=== PATIENT | female | born 1965 | race African-American/Black ===

== ENCOUNTER 2017-05-01 08:32 | Emergency (ER) | payer BC, MEDICAID ==
[~2017-05-01] VITALS: Ht 172.7 cm; Wt 131.0 kg
[2017-05-01] MEDS ORDERED: LIDOCAINE HCL 1% 20ML VIAL (Pyxis) INJ MC ONE (12:45)
[2017-05-01] MEDS ORDERED: HYDROCODONE/ACETAMINOPHEN 5/325MG TABLET PO ONE (13:15)
[2017-05-01 14:51] VITALS: BP 151/85
== END 2017-05-01 14:59 | disposition home or self-care (01) ==
LOC: ER 09:15
DX: K61.0 Anal abscess (principal); L30.8 Other specified dermatitis; R21 Rash and other nonspecific skin eruption; I10 Essential (primary) hypertension; E11.9 Type 2 diabetes mellitus without complications; E66.9 Obesity, unspecified; Z68.41 Body mass index [BMI] 40.0-44.9, adult
CPT/HCPCS: 56405; 99283; J3490

== ENCOUNTER 2017-05-13 07:07 | Emergency (ER) | payer BC ==
[~2017-05-13] VITALS: Ht 172.7 cm; Wt 90.0 kg
[2017-05-13 08:03] VITALS: BP 180/90
== END 2017-05-13 10:44 | disposition home or self-care (01) ==
LOC: ER 08:59
DX: Z48.817 Encounter for surgical aftercare following surgery on the skin and subcutaneous tissue (principal); B37.2 Candidiasis of skin and nail; L30.9 Dermatitis, unspecified; E11.9 Type 2 diabetes mellitus without complications; I10 Essential (primary) hypertension; Z88.8 Allergy status to other drugs, medicaments and biological substances
CPT/HCPCS: 99283

== ENCOUNTER 2021-10-19 13:38 | Inpatient (IN) | payer BC, OTHER ==
[~2021-10-19] VITALS: Ht 172.7 cm; Wt 88.0 kg
[2021-10-19] MEDS ORDERED: IOHEXOL-350 100 ML BOTTLE ONE (14:17)
[2021-10-19] MEDS ORDERED: ONDANSETRON HCL 4MG/2ML INJ IV ONE (14:30)
[2021-10-19] MEDS ORDERED: LABETALOL HCL VIAL 20 MG/4 ML VIAL IV ONE (14:45)
[2021-10-19] MEDS ORDERED: LABETALOL 5MG/ML SYR 20 MG/4 ML SYRINGE IV NR (14:45)
[2021-10-19 14:51] LABS: BASOPHILS % 1.3 % (0.0-2.0); EOSINOPHILS % 1.6 % (0.0-5.0); HEMATOCRIT. 34.7 % (36.0-48.0); HEMOGLOBIN. 10.9 g/dL (12.0-16.0); LYMPHOCYTES % 35.5 % (20.0-50.0); MEAN CORPUSCULAR HEMOGLOBIN 26.9 pg (28.0-32.0); MEAN CORPUSCULAR VOLUME 85.1 fL (81.0-99.0); MONOCYTES % 6.2 % (2.0-8.0); NEUTROPHILS % 55.4 % (40.0-76.0); RED BLOOD CELL COUNT 4.07 mill/uL (4.2-5.4); RED CELL DISTRIBUTION WIDTH 14.8 % (11.6-14.6)
[2021-10-19 14:59] LABS: PROTHROMBIN TIME 10.3 sec (9.6-11.0)
[2021-10-19 15:02] LABS: CHLORIDE 110 mEq/L (98-107)
[2021-10-19 15:13] LABS: ETHANOL BLOOD < 10 mg/dL
[2021-10-19] MEDS ORDERED: ASPIRIN 325MG EC TABLET PO ONE (15:30)
[2021-10-19] MEDS: ENOXAPARIN 150MG/ML SYR SUBCUT SCH (16:28)
[2021-10-19 16:55] LABS: MEAN PLATELET VOLUME 10.1 fl (7.4-10.4); PLATELET 327 x1000/uL (130-400)
[2021-10-19] MEDS ORDERED: CLONIDINE 0.1MG TABLET PO PRN (18:00)
[2021-10-19] MEDS ORDERED: MAGNESIUM/ALUMINUM HYDROXIDE/SIMETHICONE 30ML UDC PO PRN (18:00)
[2021-10-19] MEDS ORDERED: MORPHINE SULFATE 2 MG/ML CPJ (NOT FOR IM USE) IV PRN (18:00)
[2021-10-19] MEDS ORDERED: GUAIFENESIN 200MG/10ML SUGAR FREE UDC PO PRN (18:00)
[2021-10-19] MEDS ORDERED: ACETAMINOPHEN 325MG TABLET PO PRN (18:00)
[2021-10-19] MEDS ORDERED: IPRATROPIUM/ALBUTEROL 0.5-3(2.5)MG/3ML NEB HHN PRN (18:00)
[2021-10-19] MEDS ORDERED: DIPHENHYDRAMINE 50MG/ML VIAL IV PRN (18:00)
[2021-10-19] MEDS ORDERED: LORAZEPAM 2MG/ML CPJ IV PRN (18:00)
[2021-10-19] MEDS ORDERED: DEXTROSE 50% WATER 50ML SYRINGE IV PRN (18:00)
[2021-10-19] MEDS ORDERED: HYDROCODONE/ACETAMINOPHEN 5/325MG TABLET PO PRN (18:00)
[2021-10-19] MEDS ORDERED: HYDRALAZINE 20MG/ML VIAL IV PRN (18:00)
[2021-10-19] MEDS ORDERED: ONDANSETRON HCL 4MG/2ML INJ IV PRN (18:00)
[2021-10-19] MEDS ORDERED: NALOXONE HCL 0.4MG/ML VIAL IV PRN (18:15)
[2021-10-19 18:37] VITALS: BP 170/69
[2021-10-19 19:37] VITALS: BP 165/77
[2021-10-19 20:16] VITALS: BP 165/95
[2021-10-19] MEDS: SODIUM CHLORIDE 0.9% INJ 3ML FLUSH IVF SCH (21:00)
[2021-10-19] MEDS: INSULIN LISPRO 100 UNITS/ML SUBCUT SCH (21:00)
[2021-10-19] MEDS: BLOOD SUGAR DIAGNOSTIC STRIP TEST SCH (21:00)
[2021-10-19 22:07] VITALS: BP 182/77
[2021-10-20] VITALS (16 sets, daily range): BP systolic 119–181; BP diastolic 67–105
[2021-10-20] MEDS: ENOXAPARIN 150MG/ML SYR SUBCUT SCH ×2 (04:21→16:59)
[2021-10-20] MEDS: SODIUM CHLORIDE 0.9% INJ 3ML FLUSH IVF SCH ×3 (06:10→22:36)
[2021-10-20 06:16] LABS: BASOPHILS % 0.4 % (0.0-2.0); EOSINOPHILS % 1.5 % (0.0-5.0); HEMATOCRIT. 31.2 % (36.0-48.0); HEMOGLOBIN. 10.3 g/dL (12.0-16.0); LYMPHOCYTES % 27.9 % (20.0-50.0); MEAN CORPUSCULAR HEMOGLOBIN 27.5 pg (28.0-32.0); MEAN CORPUSCULAR VOLUME 83.5 fL (81.0-99.0); MONOCYTES % 7.4 % (2.0-8.0); NEUTROPHILS % 62.8 % (40.0-76.0); PLATELET 309 x1000/uL (130-400); RED BLOOD CELL COUNT 3.74 mill/uL (4.2-5.4); RED CELL DISTRIBUTION WIDTH 14.8 % (11.6-14.6)
[2021-10-20 06:36] LABS: CHLORIDE 112 mEq/L (98-107); HDL CHOLESTEROL 33 mg/dL (40-59); LDL CHOLESTEROL 117 mg/dL (5-100)
[2021-10-20] MEDS: BLOOD SUGAR DIAGNOSTIC STRIP TEST SCH ×4 (07:18→22:12)
[2021-10-20] MEDS: INSULIN LISPRO 100 UNITS/ML SUBCUT SCH ×4 (08:00→22:25)
[2021-10-20] MEDS: AMLODIPINE 10MG TABLET PO SCH (08:35)
[2021-10-20] MEDS: CARVEDILOL 6.25 MG TABLET PO SCH ×2 (08:35→22:23)
[2021-10-20 11:11] LABS: CREATINE KINASE 150 IU/L (26-192)
[2021-10-20] MEDS: SODIUM CHLORIDE 0.45% 1,000 ML IV SCH (12:02)
[2021-10-20 12:36] LABS: CLARITY URINE CLEAR (CLEAR); COLOR URINE YELLOW (YELLOW); KETONES URINE TRACE (NEGATIVE); LEUKOCYTE ESTERASE URINE NEGATIVE (NEGATIVE); NITRITE URINE NEGATIVE (NEGATIVE); OCCULT BLOOD URINE 1+ (NEGATIVE); PROTEIN URINE 4+ (NEGATIVE); SPECIFIC GRAVITY URINE 1.023 (1.005-1.030); UROBILINOGEN URINE 0.2 E.U./dL (0.2-1.0)
[2021-10-20] MEDS: ATORVASTATIN CALCIUM 40MG TABLET PO SCH (22:23)
[2021-10-21] VITALS (14 sets, daily range): BP systolic 122–179; BP diastolic 51–91
[2021-10-21] MEDS: SODIUM CHLORIDE 0.45% 1,000 ML IV SCH ×2 (02:47→20:20)
[2021-10-21] MEDS: ENOXAPARIN 150MG/ML SYR SUBCUT SCH (04:34)
[2021-10-21] MEDS: SODIUM CHLORIDE 0.9% INJ 3ML FLUSH IVF SCH ×3 (05:49→22:37)
[2021-10-21 06:13] LABS: BASOPHILS % 0.6 % (0.0-2.0); EOSINOPHILS % 2.6 % (0.0-5.0); HEMATOCRIT. 30.8 % (36.0-48.0); LYMPHOCYTES % 37.1 % (20.0-50.0); MEAN CORPUSCULAR HEMOGLOBIN 27.4 pg (28.0-32.0); MEAN CORPUSCULAR VOLUME 84.8 fL (81.0-99.0); MEAN PLATELET VOLUME 9.9 fl (7.4-10.4); MONOCYTES % 9.4 % (2.0-8.0); NEUTROPHILS % 50.3 % (40.0-76.0); PLATELET 300 x1000/uL (130-400); RED BLOOD CELL COUNT 3.63 mill/uL (4.2-5.4); RED CELL DISTRIBUTION WIDTH 14.6 % (11.6-14.6)
[2021-10-21 06:29] LABS: PHOSPHORUS 5.2 mg/dL (2.5-4.9)
[2021-10-21] MEDS: BLOOD SUGAR DIAGNOSTIC STRIP TEST SCH ×4 (07:30→21:28)
[2021-10-21 08:10] LABS: ANTI-NUCLEAR ANTIBODIES DIRECT Negative (Negative)
[2021-10-21] MEDS: AMLODIPINE 10MG TABLET PO SCH (08:43)
[2021-10-21] MEDS: CARVEDILOL 6.25 MG TABLET PO SCH ×2 (08:43→20:20)
[2021-10-21] MEDS: INSULIN LISPRO 100 UNITS/ML SUBCUT SCH ×4 (08:45→21:28)
[2021-10-21] MEDS: CLOPIDOGREL 75MG TABLET PO SCH (12:36)
[2021-10-21] MEDS: ASPIRIN 325MG EC TABLET PO SCH (12:37)
[2021-10-21] MEDS: ATORVASTATIN CALCIUM 40MG TABLET PO SCH (20:20)
[2021-10-22] VITALS (10 sets, daily range): BP systolic 124–152; BP diastolic 45–121
[2021-10-22] MEDS: DOCUSATE SODIUM 100MG CAPSULE PO PRN (03:44)
[2021-10-22] MEDS: SODIUM CHLORIDE 0.9% INJ 3ML FLUSH IVF SCH ×3 (05:43→22:00)
[2021-10-22] MEDS ORDERED: ENOXAPARIN 150MG/ML SYR SUBCUT SCH (06:00)
[2021-10-22 06:18] LABS: BASOPHILS % 0.6 % (0.0-2.0); EOSINOPHILS % 2.6 % (0.0-5.0); HEMATOCRIT. 29.5 % (36.0-48.0); HEMOGLOBIN. 9.6 g/dL (12.0-16.0); MEAN CORPUSCULAR HEMOGLOBIN 27.4 pg (28.0-32.0); MEAN CORPUSCULAR VOLUME 83.7 fL (81.0-99.0); MEAN PLATELET VOLUME 10.1 fl (7.4-10.4); MONOCYTES % 8.9 % (2.0-8.0); NEUTROPHILS % 57.9 % (40.0-76.0); PLATELET 284 x1000/uL (130-400); RED BLOOD CELL COUNT 3.52 mill/uL (4.2-5.4); RED CELL DISTRIBUTION WIDTH 14.6 % (11.6-14.6)
[2021-10-22] MEDS: BLOOD SUGAR DIAGNOSTIC STRIP TEST SCH ×4 (06:32→21:07)
[2021-10-22] MEDS: CLOPIDOGREL 75MG TABLET PO SCH (09:03)
[2021-10-22] MEDS: AMLODIPINE 10MG TABLET PO SCH (09:04)
[2021-10-22] MEDS: ASPIRIN 325MG EC TABLET PO SCH (09:04)
[2021-10-22] MEDS: CARVEDILOL 6.25 MG TABLET PO SCH ×2 (09:04→21:07)
[2021-10-22] MEDS: INSULIN LISPRO 100 UNITS/ML SUBCUT SCH ×4 (09:04→21:14)
[2021-10-22] MEDS: HYDRALAZINE HCL 25MG TABLET PO SCH ×2 (13:13→23:06)
[2021-10-22] MEDS: SODIUM CHLORIDE 0.45% 1,000 ML IV SCH (13:13)
[2021-10-22] MEDS: ATORVASTATIN CALCIUM 40MG TABLET PO SCH (21:07)
[2021-10-23] VITALS (12 sets, daily range): BP systolic 110–164; BP diastolic 46–95
[2021-10-23] MEDS: DOCUSATE SODIUM 100MG CAPSULE PO PRN (00:08)
[2021-10-23] MEDS: HYDRALAZINE HCL 25MG TABLET PO SCH ×3 (05:41→22:10)
[2021-10-23] MEDS: ENOXAPARIN 150MG/ML SYR SUBCUT SCH (05:41)
[2021-10-23] MEDS: SODIUM CHLORIDE 0.9% INJ 3ML FLUSH IVF SCH ×3 (06:00→22:11)
[2021-10-23] MEDS: SODIUM CHLORIDE 0.45% 1,000 ML IV SCH ×2 (08:00→17:27)
[2021-10-23] MEDS: BLOOD SUGAR DIAGNOSTIC STRIP TEST SCH ×4 (08:28→21:00)
[2021-10-23] MEDS: ASPIRIN 325MG EC TABLET PO SCH (08:34)
[2021-10-23] MEDS: CARVEDILOL 6.25 MG TABLET PO SCH ×2 (08:34→22:10)
[2021-10-23] MEDS: AMLODIPINE 10MG TABLET PO SCH (08:34)
[2021-10-23] MEDS: CLOPIDOGREL 75MG TABLET PO SCH (08:34)
[2021-10-23] MEDS: INSULIN LISPRO 100 UNITS/ML SUBCUT SCH ×4 (08:37→22:24)
[2021-10-23] MEDS: ATORVASTATIN CALCIUM 40MG TABLET PO SCH (22:10)
[2021-10-24] VITALS (12 sets, daily range): BP systolic 93–187; BP diastolic 39–99
[2021-10-24] MEDS: HYDRALAZINE 20MG/ML VIAL IV PRN (01:03)
[2021-10-24] MEDS: SODIUM CHLORIDE 0.45% 1,000 ML IV SCH (05:38)
[2021-10-24] MEDS: ENOXAPARIN 150MG/ML SYR SUBCUT SCH (05:38)
[2021-10-24] MEDS: HYDRALAZINE HCL 25MG TABLET PO SCH ×3 (05:39→21:32)
[2021-10-24] MEDS: SODIUM CHLORIDE 0.9% INJ 3ML FLUSH IVF SCH ×3 (05:48→21:29)
[2021-10-24] MEDS: BLOOD SUGAR DIAGNOSTIC STRIP TEST SCH ×4 (07:26→21:29)
[2021-10-24] MEDS: INSULIN LISPRO 100 UNITS/ML SUBCUT SCH ×4 (08:37→21:34)
[2021-10-24] MEDS: ASPIRIN 325MG EC TABLET PO SCH (09:19)
[2021-10-24] MEDS: AMLODIPINE 10MG TABLET PO SCH (09:19)
[2021-10-24] MEDS: DOCUSATE SODIUM 100MG CAPSULE PO PRN (09:19)
[2021-10-24] MEDS: CARVEDILOL 6.25 MG TABLET PO SCH ×2 (09:19→21:33)
[2021-10-24] MEDS: CLOPIDOGREL 75MG TABLET PO SCH (09:26)
[2021-10-24] MEDS ORDERED: LACTULOSE 20G/30ML UDC PO PRN (10:00)
[2021-10-24] MEDS ORDERED: BISACODYL 10MG SUPP PR SCH (10:45)
[2021-10-24] MEDS ORDERED: DOCUSATE SODIUM 100MG CAPSULE PO SCH (17:00)
[2021-10-24] MEDS: DOCUSATE SODIUM 100MG CAPSULE PO SCH (17:18)
[2021-10-24] MEDS: ATORVASTATIN CALCIUM 40MG TABLET PO SCH (21:31)
[2021-10-25] VITALS (11 sets, daily range): BP systolic 108–179; BP diastolic 44–91
[2021-10-25] MEDS: ENOXAPARIN 150MG/ML SYR SUBCUT SCH (06:45)
[2021-10-25] MEDS: BLOOD SUGAR DIAGNOSTIC STRIP TEST SCH ×4 (06:45→21:41)
[2021-10-25] MEDS: SODIUM CHLORIDE 0.9% INJ 3ML FLUSH IVF SCH ×3 (06:46→21:41)
[2021-10-25] MEDS: HYDRALAZINE HCL 25MG TABLET PO SCH ×3 (06:46→21:41)
[2021-10-25] MEDS: INSULIN LISPRO 100 UNITS/ML SUBCUT SCH ×4 (06:52→21:47)
[2021-10-25 07:32] LABS: BASOPHILS % 0.4 % (0.0-2.0); EOSINOPHILS % 2.5 % (0.0-5.0); HEMATOCRIT. 31.9 % (36.0-48.0); HEMOGLOBIN. 10.4 g/dL (12.0-16.0); MEAN CORPUSCULAR HEMOGLOBIN 27.2 pg (28.0-32.0); MEAN CORPUSCULAR VOLUME 83.3 fL (81.0-99.0); MEAN PLATELET VOLUME 10.3 fl (7.4-10.4); MONOCYTES % 10.7 % (2.0-8.0); NEUTROPHILS % 50.4 % (40.0-76.0); PLATELET 285 x1000/uL (130-400); RED BLOOD CELL COUNT 3.83 mill/uL (4.2-5.4); RED CELL DISTRIBUTION WIDTH 14.4 % (11.6-14.6)
[2021-10-25] MEDS: AMLODIPINE 10MG TABLET PO SCH (08:59)
[2021-10-25] MEDS: ASPIRIN 325MG EC TABLET PO SCH (08:59)
[2021-10-25] MEDS: CARVEDILOL 6.25 MG TABLET PO SCH ×2 (08:59→21:41)
[2021-10-25] MEDS: CLOPIDOGREL 75MG TABLET PO SCH (08:59)
[2021-10-25] MEDS: DOCUSATE SODIUM 100MG CAPSULE PO SCH ×2 (09:00→17:34)
[2021-10-25] MEDS: CITRIC ACID/SODIUM CITRATE SOLN 15ML UDC PO SCH ×3 (10:42→17:34)
[2021-10-25] MEDS: ATORVASTATIN CALCIUM 40MG TABLET PO SCH (21:41)
[2021-10-26] VITALS (12 sets, daily range): BP systolic 84–161; BP diastolic 47–106
[2021-10-26] MEDS: ENOXAPARIN 150MG/ML SYR SUBCUT SCH ×2 (06:04→17:33)
[2021-10-26] MEDS: HYDRALAZINE HCL 25MG TABLET PO SCH ×3 (06:05→21:34)
[2021-10-26] MEDS: SODIUM CHLORIDE 0.9% INJ 3ML FLUSH IVF SCH ×3 (06:05→21:34)
[2021-10-26 06:24] LABS: BASOPHILS % 0.6 % (0.0-2.0); EOSINOPHILS % 3.3 % (0.0-5.0); HEMOGLOBIN. 10.1 g/dL (12.0-16.0); LYMPHOCYTES % 39.4 % (20.0-50.0); MEAN CORPUSCULAR HEMOGLOBIN 27.5 pg (28.0-32.0); MEAN CORPUSCULAR VOLUME 84.1 fL (81.0-99.0); MEAN PLATELET VOLUME 10.5 fl (7.4-10.4); NEUTROPHILS % 46.7 % (40.0-76.0); PLATELET 270 x1000/uL (130-400); RED BLOOD CELL COUNT 3.68 mill/uL (4.2-5.4); RED CELL DISTRIBUTION WIDTH 14.4 % (11.6-14.6)
[2021-10-26] MEDS: BLOOD SUGAR DIAGNOSTIC STRIP TEST SCH ×4 (06:30→21:34)
[2021-10-26] MEDS: INSULIN LISPRO 100 UNITS/ML SUBCUT SCH ×4 (08:00→21:35)
[2021-10-26] MEDS: ASPIRIN 325MG EC TABLET PO SCH (09:24)
[2021-10-26] MEDS: CLOPIDOGREL 75MG TABLET PO SCH (09:24)
[2021-10-26] MEDS: DOCUSATE SODIUM 100MG CAPSULE PO SCH ×2 (09:24→17:30)
[2021-10-26] MEDS: CARVEDILOL 6.25 MG TABLET PO SCH ×2 (09:24→21:33)
[2021-10-26] MEDS: AMLODIPINE 10MG TABLET PO SCH (09:30)
[2021-10-26] MEDS: CITRIC ACID/SODIUM CITRATE SOLN 15ML UDC PO SCH ×3 (09:30→17:33)
[2021-10-26] MEDS: ATORVASTATIN CALCIUM 40MG TABLET PO SCH (21:33)
[2021-10-27] VITALS (14 sets, daily range): BP systolic 100–172; BP diastolic 52–101
[2021-10-27 06:13] LABS: BASOPHILS % 0.4 % (0.0-2.0); EOSINOPHILS % 2.8 % (0.0-5.0); HEMOGLOBIN. 10.6 g/dL (12.0-16.0); LYMPHOCYTES % 41.9 % (20.0-50.0); MEAN CORPUSCULAR VOLUME 83.9 fL (81.0-99.0); MEAN PLATELET VOLUME 10.6 fl (7.4-10.4); MONOCYTES % 9.8 % (2.0-8.0); NEUTROPHILS % 45.1 % (40.0-76.0); PLATELET 305 x1000/uL (130-400); RED BLOOD CELL COUNT 3.93 mill/uL (4.2-5.4); RED CELL DISTRIBUTION WIDTH 14.5 % (11.6-14.6)
[2021-10-27 06:23] LABS: PHOSPHORUS 4.1 mg/dL (2.5-4.9)
[2021-10-27] MEDS: SODIUM CHLORIDE 0.9% INJ 3ML FLUSH IVF SCH ×3 (06:26→22:00)
[2021-10-27] MEDS: HYDRALAZINE HCL 25MG TABLET PO SCH ×3 (06:35→21:22)
[2021-10-27] MEDS: ENOXAPARIN 150MG/ML SYR SUBCUT SCH ×2 (06:36→17:52)
[2021-10-27] MEDS: BLOOD SUGAR DIAGNOSTIC STRIP TEST SCH ×4 (06:36→21:22)
[2021-10-27] MEDS: CITRIC ACID/SODIUM CITRATE SOLN 15ML UDC PO SCH ×3 (08:46→17:52)
[2021-10-27] MEDS: CLOPIDOGREL 75MG TABLET PO SCH (08:46)
[2021-10-27] MEDS: ASPIRIN 325MG EC TABLET PO SCH (08:46)
[2021-10-27] MEDS: AMLODIPINE 10MG TABLET PO SCH (08:47)
[2021-10-27] MEDS: CARVEDILOL 6.25 MG TABLET PO SCH ×2 (08:47→21:22)
[2021-10-27] MEDS: DOCUSATE SODIUM 100MG CAPSULE PO SCH ×2 (08:48→17:00)
[2021-10-27] MEDS: INSULIN LISPRO 100 UNITS/ML SUBCUT SCH ×4 (08:48→21:33)
[2021-10-27] MEDS ORDERED: BISACODYL 10MG SUPP PR PRN (14:00)
[2021-10-27] MEDS: LACTULOSE 20G/30ML UDC PO SCH ×3 (14:46→21:00)
[2021-10-27] MEDS ORDERED: POLYETHYLENE GLYCOL 3350 (17GM) 1 DOSE PACK PO SCH (21:00)
[2021-10-27] MEDS: ATORVASTATIN CALCIUM 40MG TABLET PO SCH (21:20)
[2021-10-27] MEDS: HYDRALAZINE 20MG/ML VIAL IV PRN (23:42)
[2021-10-28] VITALS (10 sets, daily range): BP systolic 145–188; BP diastolic 60–97
[2021-10-28] MEDS: ENOXAPARIN 150MG/ML SYR SUBCUT SCH ×2 (06:13→17:25)
[2021-10-28] MEDS: SODIUM CHLORIDE 0.9% INJ 3ML FLUSH IVF SCH ×2 (06:15→14:34)
[2021-10-28] MEDS: HYDRALAZINE HCL 25MG TABLET PO SCH ×2 (06:15→14:37)
[2021-10-28] MEDS: BLOOD SUGAR DIAGNOSTIC STRIP TEST SCH ×3 (07:30→17:36)
[2021-10-28] MEDS: INSULIN LISPRO 100 UNITS/ML SUBCUT SCH ×3 (08:00→17:35)
[2021-10-28] MEDS: LACTULOSE 20G/30ML UDC PO SCH ×3 (09:29→17:00)
[2021-10-28] MEDS: CITRIC ACID/SODIUM CITRATE SOLN 15ML UDC PO SCH ×3 (09:29→17:24)
[2021-10-28] MEDS: ASPIRIN 325MG EC TABLET PO SCH (09:30)
[2021-10-28] MEDS: CARVEDILOL 6.25 MG TABLET PO SCH (09:30)
[2021-10-28] MEDS: CLOPIDOGREL 75MG TABLET PO SCH (09:30)
[2021-10-28] MEDS: AMLODIPINE 10MG TABLET PO SCH (09:31)
[2021-10-28] MEDS: DOCUSATE SODIUM 100MG CAPSULE PO SCH ×2 (09:31→17:24)
== END 2021-10-28 20:00 | DRG 64 ==
LOC: ER 13:38 → 5EST 16:55 → EDBEDREQ 16:57 → EDBEDREQTM 16:57 → ENRESERV 17:01
PROVIDERS: ADMIT Internal Medicine; ATTEND Internal Medicine
DX: I63.9 Cerebral infarction, unspecified (principal); N17.0 Acute kidney failure with tubular necrosis; I21.4 Non-ST elevation (NSTEMI) myocardial infarction; I50.43 Acute on chronic combined systolic (congestive) and diastolic (congestive) heart failure; I16.1 Hypertensive emergency; E87.2 Acidosis; R65.10 Systemic inflammatory response syndrome (SIRS) of non-infectious origin without acute organ dysfunction; G81.91 Hemiplegia, unspecified affecting right dominant side; I42.9 Cardiomyopathy, unspecified; I13.0 Hypertensive heart and chronic kidney disease with heart failure and stage 1 through stage 4 chronic kidney disease, or unspecified chronic kidney disease; D64.9 Anemia, unspecified; N18.9 Chronic kidney disease, unspecified; E11.22 Type 2 diabetes mellitus with diabetic chronic kidney disease; I66.11 Occlusion and stenosis of right anterior cerebral artery; R47.1 Dysarthria and anarthria; E66.01 Morbid (severe) obesity due to excess calories; K76.0 Fatty (change of) liver, not elsewhere classified; R47.01 Aphasia; I67.2 Cerebral atherosclerosis; E11.65 Type 2 diabetes mellitus with hyperglycemia; E88.09 Other disorders of plasma-protein metabolism, not elsewhere classified; K59.00 Constipation, unspecified; Z88.1 Allergy status to other antibiotic agents; Z79.899 Other long term (current) drug therapy; Z68.29 Body mass index [BMI] 29.0-29.9, adult; Z86.73 Personal history of transient ischemic attack (TIA), and cerebral infarction without residual deficits; Z91.81 History of falling
CPT/HCPCS: 36415; 70496; 70498; 71045; 76770; 80048; 80053; 80061; 80320; 81003; 82550; 82570; 82962; 83735; 83880; 84100; 84156; 84484; 85025; 86038; 86160; 86850; 86900; 92523; 92610; 93005; 93306; 93880; 93970; 97110; 97112; 97163; 97166; 97530; 97535; 99285; J0360; J1650; J1815; J2405; J3490; Q9967; G0480

== ENCOUNTER 2021-10-28 20:00 | Inpatient (IN) | payer OTHER ==
[~2021-10-28] VITALS: Ht 172.7 cm; Wt 139.2 kg
[2021-10-28 20:16] VITALS: BP 165/95
[2021-10-28 22:00] VITALS: BP 152/46
[2021-10-28] MEDS ORDERED: GUAIFENESIN 200MG/10ML SUGAR FREE UDC PO PRN (22:30)
[2021-10-28] MEDS ORDERED: HYDRALAZINE 20MG/ML VIAL IV PRN (22:30)
[2021-10-28] MEDS ORDERED: MAGNESIUM/ALUMINUM HYDROXIDE/SIMETHICONE 30ML UDC PO PRN (22:30)
[2021-10-28] MEDS ORDERED: ONDANSETRON HCL 4MG/2ML INJ IV PRN (22:30)
[2021-10-28] MEDS ORDERED: DEXTROSE 50% WATER 50ML SYRINGE IV PRN (22:30)
[2021-10-28] MEDS ORDERED: DIPHENHYDRAMINE 50MG/ML VIAL IV PRN (22:30)
[2021-10-28] MEDS ORDERED: IPRATROPIUM/ALBUTEROL 0.5-3(2.5)MG/3ML NEB HHN PRN ×2 (22:30→23:00)
[2021-10-28] MEDS ORDERED: BISACODYL 10MG SUPP PR PRN (22:30)
[2021-10-28] MEDS ORDERED: POLYETHYLENE GLYCOL 3350 (17GM) 1 DOSE PACK PO SCH (22:45)
[2021-10-28] MEDS: SODIUM CHLORIDE 0.9% INJ 3ML FLUSH IVF SCH (22:45)
[2021-10-28] MEDS: BLOOD SUGAR DIAGNOSTIC STRIP TEST SCH (22:45)
[2021-10-28] MEDS ORDERED: HYDRALAZINE 10 MG in SODIUM CHLORIDE 0.9% 49.5 ML IV PRN (23:00)
[2021-10-28] MEDS: INSULIN LISPRO 100 UNITS/ML SUBCUT SCH (23:59)
[2021-10-29 06:23] LABS: BASOPHILS % 0.5 % (0.0-2.0); EOSINOPHILS % 1.8 % (0.0-5.0); HEMATOCRIT. 32.4 % (36.0-48.0); HEMOGLOBIN. 10.6 g/dL (12.0-16.0); LYMPHOCYTES % 28.7 % (20.0-50.0); MEAN CORPUSCULAR HEMOGLOBIN 27.2 pg (28.0-32.0); MEAN CORPUSCULAR VOLUME 83.2 fL (81.0-99.0); MEAN PLATELET VOLUME 10.5 fl (7.4-10.4); MONOCYTES % 7.9 % (2.0-8.0); NEUTROPHILS % 61.1 % (40.0-76.0); PLATELET 317 x1000/uL (130-400); RED BLOOD CELL COUNT 3.89 mill/uL (4.2-5.4); RED CELL DISTRIBUTION WIDTH 14.7 % (11.6-14.6)
[2021-10-29] MEDS: HYDRALAZINE HCL 25MG TABLET PO SCH ×3 (06:39→23:23)
[2021-10-29 07:28] LABS: CHLORIDE 107 mEq/L (98-107)
[2021-10-29] MEDS: CITRIC ACID/SODIUM CITRATE SOLN 15ML UDC PO SCH ×3 (08:43→17:00)
[2021-10-29] MEDS: ASPIRIN 325MG EC TABLET PO SCH (08:44)
[2021-10-29] MEDS: AMLODIPINE 10MG TABLET PO SCH (08:48)
[2021-10-29] MEDS: CARVEDILOL 6.25 MG TABLET PO SCH ×2 (08:52→21:41)
[2021-10-29] MEDS: SODIUM CHLORIDE 0.9% INJ 3ML FLUSH IVF SCH ×3 (08:53→23:21)
[2021-10-29] MEDS: DOCUSATE SODIUM 100MG CAPSULE PO SCH ×2 (09:00→17:00)
[2021-10-29] MEDS: LACTULOSE 20G/30ML UDC PO SCH ×4 (09:00→21:00)
[2021-10-29] MEDS: INSULIN LISPRO 100 UNITS/ML SUBCUT SCH ×4 (09:04→21:54)
[2021-10-29] MEDS: ENOXAPARIN 150MG/ML SYR SUBCUT SCH ×2 (10:26→21:43)
[2021-10-29] MEDS: CLOPIDOGREL 75MG TABLET PO SCH (10:27)
[2021-10-29 12:00] VITALS: BP 155/42
[2021-10-29] MEDS: BLOOD SUGAR DIAGNOSTIC STRIP TEST SCH ×3 (12:04→21:43)
[2021-10-29 18:42] VITALS: BP 148/57
[2021-10-29 20:00] VITALS: BP 155/54
[2021-10-29] MEDS: POLYETHYLENE GLYCOL 3350 (17GM) 1 DOSE PACK PO SCH (21:00)
[2021-10-29] MEDS: ATORVASTATIN CALCIUM 40MG TABLET PO SCH (21:41)
[2021-10-30] VITALS: BP 170/80
[2021-10-30 04:00] VITALS: BP 172/60
[2021-10-30] MEDS: HYDRALAZINE HCL 25MG TABLET PO SCH ×3 (06:00→21:04)
[2021-10-30] MEDS: BLOOD SUGAR DIAGNOSTIC STRIP TEST SCH ×4 (06:26→21:10)
[2021-10-30] MEDS: SODIUM CHLORIDE 0.9% INJ 3ML FLUSH IVF SCH ×3 (06:26→22:29)
[2021-10-30] MEDS: INSULIN LISPRO 100 UNITS/ML SUBCUT SCH ×4 (07:11→21:27)
[2021-10-30 07:37] LABS: BASOPHILS % 0.3 % (0.0-2.0); EOSINOPHILS % 2.6 % (0.0-5.0); HEMATOCRIT. 30.6 % (36.0-48.0); HEMOGLOBIN. 9.9 g/dL (12.0-16.0); LYMPHOCYTES % 37.8 % (20.0-50.0); MEAN CORPUSCULAR VOLUME 83.6 fL (81.0-99.0); MEAN PLATELET VOLUME 10.1 fl (7.4-10.4); MONOCYTES % 8.6 % (2.0-8.0); NEUTROPHILS % 50.7 % (40.0-76.0); PLATELET 307 x1000/uL (130-400); RED BLOOD CELL COUNT 3.66 mill/uL (4.2-5.4); RED CELL DISTRIBUTION WIDTH 14.5 % (11.6-14.6)
[2021-10-30 08:00] VITALS: BP 156/62
[2021-10-30 08:12] LABS: CHLORIDE 105 mEq/L (98-107); TOTAL IRON BINDING CAPACITY 251 ug/dL (250-450)
[2021-10-30 08:25] LABS: FOLIC ACID (FOLATE) SERUM 8.7 ng/mL (>5.38)
[2021-10-30] MEDS: CLOPIDOGREL 75MG TABLET PO SCH (09:32)
[2021-10-30] MEDS: DOCUSATE SODIUM 100MG CAPSULE PO SCH ×2 (09:32→16:47)
[2021-10-30] MEDS: ENOXAPARIN 150MG/ML SYR SUBCUT SCH ×2 (09:32→21:06)
[2021-10-30] MEDS: AMLODIPINE 10MG TABLET PO SCH (09:33)
[2021-10-30] MEDS: ASPIRIN 325MG EC TABLET PO SCH (09:33)
[2021-10-30] MEDS: CITRIC ACID/SODIUM CITRATE SOLN 15ML UDC PO SCH ×3 (09:33→16:47)
[2021-10-30] MEDS: CARVEDILOL 6.25 MG TABLET PO SCH ×2 (09:33→21:06)
[2021-10-30] MEDS: ACETAMINOPHEN 325MG TABLET PO PRN (09:34)
[2021-10-30 12:00] VITALS: BP 139/34
[2021-10-30 16:00] VITALS: BP 139/34
[2021-10-30] MEDS: CYANOCOBALAMIN 1000MCG/ML VIAL IM SCH (16:47)
[2021-10-30] MEDS: FERROUS SULFATE 325MG TABLET PO SCH (16:48)
[2021-10-30] MEDS: LIDOCAINE 5% PATCH TOP SCH (18:03)
[2021-10-30 20:00] VITALS: BP 172/51
[2021-10-30] MEDS: POLYETHYLENE GLYCOL 3350 (17GM) 1 DOSE PACK PO SCH (21:00)
[2021-10-30] MEDS: ATORVASTATIN CALCIUM 40MG TABLET PO SCH (21:04)
[2021-10-31] VITALS: BP 155/54
[2021-10-31 04:00] VITALS: BP 160/52
[2021-10-31] MEDS: HYDRALAZINE HCL 25MG TABLET PO SCH ×3 (06:01→22:09)
[2021-10-31] MEDS: SODIUM CHLORIDE 0.9% INJ 3ML FLUSH IVF SCH ×3 (06:02→23:23)
[2021-10-31] MEDS: BLOOD SUGAR DIAGNOSTIC STRIP TEST SCH ×4 (06:58→21:29)
[2021-10-31] MEDS: INSULIN LISPRO 100 UNITS/ML SUBCUT SCH ×4 (06:58→21:28)
[2021-10-31 07:45] LABS: BASOPHILS % 0.4 % (0.0-2.0); EOSINOPHILS % 2.2 % (0.0-5.0); HEMATOCRIT. 28.9 % (36.0-48.0); HEMOGLOBIN. 9.6 g/dL (12.0-16.0); LYMPHOCYTES % 38.2 % (20.0-50.0); MEAN CORPUSCULAR HEMOGLOBIN 27.6 pg (28.0-32.0); MEAN CORPUSCULAR VOLUME 83.3 fL (81.0-99.0); MEAN PLATELET VOLUME 10.6 fl (7.4-10.4); MONOCYTES % 7.8 % (2.0-8.0); NEUTROPHILS % 51.4 % (40.0-76.0); PLATELET 293 x1000/uL (130-400); RED BLOOD CELL COUNT 3.47 mill/uL (4.2-5.4); RED CELL DISTRIBUTION WIDTH 14.5 % (11.6-14.6)
[2021-10-31 08:00] VITALS: BP 160/56
[2021-10-31 08:41] LABS: T4 FREE 2.11 ng/dL (0.76-1.46)
[2021-10-31] MEDS: ENOXAPARIN 150MG/ML SYR SUBCUT SCH ×2 (09:00→21:16)
[2021-10-31] MEDS: CYANOCOBALAMIN 1000MCG/ML VIAL IM SCH (10:17)
[2021-10-31] MEDS: CITRIC ACID/SODIUM CITRATE SOLN 15ML UDC PO SCH ×3 (10:17→17:03)
[2021-10-31] MEDS: DOCUSATE SODIUM 100MG CAPSULE PO SCH ×2 (10:18→17:00)
[2021-10-31] MEDS: CLOPIDOGREL 75MG TABLET PO SCH (10:18)
[2021-10-31] MEDS: ASCORBIC ACID 500 MG TABLET PO SCH (10:18)
[2021-10-31] MEDS: ASPIRIN 325MG EC TABLET PO SCH (10:18)
[2021-10-31] MEDS: FERROUS SULFATE 325MG TABLET PO SCH ×3 (10:18→17:03)
[2021-10-31] MEDS: AMLODIPINE 10MG TABLET PO SCH (10:19)
[2021-10-31] MEDS: CARVEDILOL 6.25 MG TABLET PO SCH ×2 (10:20→21:18)
[2021-10-31] MEDS: LIDOCAINE 5% PATCH TOP SCH (10:21)
[2021-10-31 12:00] VITALS: BP 152/75
[2021-10-31 16:00] VITALS: BP 149/77
[2021-10-31 20:00] VITALS: BP 174/54
[2021-10-31] MEDS: POLYETHYLENE GLYCOL 3350 (17GM) 1 DOSE PACK PO SCH (21:00)
[2021-10-31] MEDS: ATORVASTATIN CALCIUM 40MG TABLET PO SCH (21:15)
[2021-11-01] VITALS: BP 163/56
[2021-11-01 04:00] VITALS: BP 187/69
[2021-11-01] MEDS: HYDRALAZINE HCL 25MG TABLET PO SCH ×3 (06:40→21:55)
[2021-11-01 06:42] LABS: BASOPHILS % 0.4 % (0.0-2.0); EOSINOPHILS % 2.2 % (0.0-5.0); HEMOGLOBIN. 10.1 g/dL (12.0-16.0); LYMPHOCYTES % 34.7 % (20.0-50.0); MEAN CORPUSCULAR HEMOGLOBIN 27.1 pg (28.0-32.0); MEAN CORPUSCULAR VOLUME 82.9 fL (81.0-99.0); MEAN PLATELET VOLUME 10.4 fl (7.4-10.4); MONOCYTES % 9.3 % (2.0-8.0); NEUTROPHILS % 53.4 % (40.0-76.0); PLATELET 301 x1000/uL (130-400); RED BLOOD CELL COUNT 3.74 mill/uL (4.2-5.4); RED CELL DISTRIBUTION WIDTH 14.5 % (11.6-14.6)
[2021-11-01] MEDS: BLOOD SUGAR DIAGNOSTIC STRIP TEST SCH ×4 (06:45→21:00)
[2021-11-01] MEDS: SODIUM CHLORIDE 0.9% INJ 3ML FLUSH IVF SCH ×3 (06:46→21:55)
[2021-11-01] MEDS: INSULIN LISPRO 100 UNITS/ML SUBCUT SCH ×4 (07:09→22:07)
[2021-11-01 08:00] VITALS: BP 154/82
[2021-11-01] MEDS: ENOXAPARIN 150MG/ML SYR SUBCUT SCH ×2 (09:00→20:26)
[2021-11-01] MEDS: ASCORBIC ACID 500 MG TABLET PO SCH (10:12)
[2021-11-01] MEDS: AMLODIPINE 10MG TABLET PO SCH (10:12)
[2021-11-01] MEDS: FERROUS SULFATE 325MG TABLET PO SCH ×3 (10:13→18:55)
[2021-11-01] MEDS: LIDOCAINE 5% PATCH TOP SCH (10:13)
[2021-11-01] MEDS: DOCUSATE SODIUM 100MG CAPSULE PO SCH ×2 (10:13→18:55)
[2021-11-01] MEDS: ASPIRIN 325MG EC TABLET PO SCH (10:13)
[2021-11-01] MEDS: CARVEDILOL 6.25 MG TABLET PO SCH ×2 (10:13→20:25)
[2021-11-01] MEDS: CLOPIDOGREL 75MG TABLET PO SCH (10:13)
[2021-11-01] MEDS: CYANOCOBALAMIN 1000MCG/ML VIAL IM SCH (10:14)
[2021-11-01 20:00] VITALS: BP 171/59
[2021-11-01] MEDS: ATORVASTATIN CALCIUM 40MG TABLET PO SCH (20:23)
[2021-11-01] MEDS: POLYETHYLENE GLYCOL 3350 (17GM) 1 DOSE PACK PO SCH (20:25)
[2021-11-01] MEDS: CLONIDINE 0.1MG TABLET PO PRN (20:26)
[2021-11-01] MEDS: ACETAMINOPHEN 325MG TABLET PO PRN (22:05)
[2021-11-01 23:59] VITALS: BP 133/55
[2021-11-02] MEDS: HYDRALAZINE HCL 25MG TABLET PO SCH ×3 (05:44→21:11)
[2021-11-02] MEDS: BLOOD SUGAR DIAGNOSTIC STRIP TEST SCH ×4 (05:45→21:57)
[2021-11-02] MEDS: SODIUM CHLORIDE 0.9% INJ 3ML FLUSH IVF SCH ×3 (05:45→22:18)
[2021-11-02] MEDS: INSULIN LISPRO 100 UNITS/ML SUBCUT SCH ×3 (06:12→18:20)
[2021-11-02 08:00] VITALS: BP 184/53
[2021-11-02] MEDS: ASCORBIC ACID 500 MG TABLET PO SCH (09:51)
[2021-11-02] MEDS: CARVEDILOL 6.25 MG TABLET PO SCH ×2 (09:51→21:11)
[2021-11-02] MEDS: DOCUSATE SODIUM 100MG CAPSULE PO SCH ×2 (09:51→17:16)
[2021-11-02] MEDS: AMLODIPINE 10MG TABLET PO SCH (09:51)
[2021-11-02] MEDS: FERROUS SULFATE 325MG TABLET PO SCH ×3 (09:52→17:16)
[2021-11-02] MEDS: CLOPIDOGREL 75MG TABLET PO SCH (09:52)
[2021-11-02] MEDS: ASPIRIN 325MG EC TABLET PO SCH (09:53)
[2021-11-02] MEDS: CYANOCOBALAMIN 1000MCG/ML VIAL IM SCH (09:54)
[2021-11-02] MEDS: ENOXAPARIN 150MG/ML SYR SUBCUT SCH ×2 (09:55→21:12)
[2021-11-02] MEDS: LIDOCAINE 5% PATCH TOP SCH (10:03)
[2021-11-02 20:00] VITALS: BP 139/48
[2021-11-02] MEDS: ATORVASTATIN CALCIUM 40MG TABLET PO SCH (21:10)
[2021-11-02] MEDS: POLYETHYLENE GLYCOL 3350 (17GM) 1 DOSE PACK PO SCH (21:12)
[2021-11-02] MEDS ORDERED: DEXTROSE 50% WATER 50ML SYRINGE IV PRN (22:15)
[2021-11-02] MEDS: INSULIN GLARGINE 100 UNITS/ML SUBCUT SCH (22:29)
[2021-11-03] MEDS: BLOOD SUGAR DIAGNOSTIC STRIP TEST SCH ×4 (06:27→21:00)
[2021-11-03] MEDS: SODIUM CHLORIDE 0.9% INJ 3ML FLUSH IVF SCH ×3 (06:50→22:23)
[2021-11-03] MEDS: HYDRALAZINE HCL 25MG TABLET PO SCH ×3 (06:51→21:47)
[2021-11-03] MEDS ORDERED: INSULIN LISPRO 100 UNITS/ML SUBCUT SCH (07:00)
[2021-11-03] MEDS: INSULIN LISPRO 100 UNITS/ML SUBCUT SCH ×7 (07:03→22:21)
[2021-11-03 08:00] VITALS: BP 146/49
[2021-11-03 08:18] LABS: T4 FREE 2.25 ng/dL (0.76-1.46)
[2021-11-03] MEDS: ASCORBIC ACID 500 MG TABLET PO SCH (09:30)
[2021-11-03] MEDS: ASPIRIN 325MG EC TABLET PO SCH (09:30)
[2021-11-03] MEDS: FERROUS SULFATE 325MG TABLET PO SCH ×3 (09:31→17:25)
[2021-11-03] MEDS: METHIMAZOLE 5MG TABLET PO SCH ×2 (09:32→17:24)
[2021-11-03] MEDS: CLOPIDOGREL 75MG TABLET PO SCH (09:33)
[2021-11-03] MEDS: AMLODIPINE 10MG TABLET PO SCH (09:33)
[2021-11-03] MEDS: DOCUSATE SODIUM 100MG CAPSULE PO SCH ×2 (09:34→17:00)
[2021-11-03] MEDS: LIDOCAINE 5% PATCH TOP SCH (09:39)
[2021-11-03] MEDS: ENOXAPARIN 150MG/ML SYR SUBCUT SCH ×2 (09:40→21:49)
[2021-11-03] MEDS: CYANOCOBALAMIN 1000MCG/ML VIAL IM SCH (09:52)
[2021-11-03] MEDS: CARVEDILOL 6.25 MG TABLET PO SCH ×2 (09:52→21:47)
[2021-11-03] MEDS: LACTULOSE 20G/30ML UDC PO PRN (10:42)
[2021-11-03 20:00] VITALS: BP 153/75
[2021-11-03] MEDS: POLYETHYLENE GLYCOL 3350 (17GM) 1 DOSE PACK PO SCH (21:47)
[2021-11-03] MEDS: ATORVASTATIN CALCIUM 40MG TABLET PO SCH (21:47)
[2021-11-03] MEDS: INSULIN GLARGINE 100 UNITS/ML SUBCUT SCH (22:20)
[2021-11-04] MEDS: SODIUM CHLORIDE 0.9% INJ 3ML FLUSH IVF SCH ×2 (06:47→22:45)
[2021-11-04] MEDS: HYDRALAZINE HCL 25MG TABLET PO SCH ×3 (06:49→21:40)
[2021-11-04] MEDS: BLOOD SUGAR DIAGNOSTIC STRIP TEST SCH ×4 (06:56→21:11)
[2021-11-04] MEDS: INSULIN LISPRO 100 UNITS/ML SUBCUT SCH ×7 (07:17→21:44)
[2021-11-04 08:00] VITALS: BP 132/69
[2021-11-04] MEDS: METHIMAZOLE 5MG TABLET PO SCH ×2 (09:00→17:33)
[2021-11-04] MEDS: LIDOCAINE 5% PATCH TOP SCH (09:00)
[2021-11-04] MEDS: DOCUSATE SODIUM 100MG CAPSULE PO SCH ×2 (09:00→17:33)
[2021-11-04] MEDS: CLOPIDOGREL 75MG TABLET PO SCH (09:33)
[2021-11-04] MEDS: ASCORBIC ACID 500 MG TABLET PO SCH (09:33)
[2021-11-04] MEDS: FERROUS SULFATE 325MG TABLET PO SCH ×3 (09:33→17:32)
[2021-11-04] MEDS: CARVEDILOL 6.25 MG TABLET PO SCH ×2 (09:33→20:16)
[2021-11-04] MEDS: ASPIRIN 325MG EC TABLET PO SCH (09:33)
[2021-11-04] MEDS: CYANOCOBALAMIN 1000MCG/ML VIAL IM SCH (09:35)
[2021-11-04] MEDS: AMLODIPINE 10MG TABLET PO SCH (09:36)
[2021-11-04] MEDS: ENOXAPARIN 150MG/ML SYR SUBCUT SCH ×2 (09:37→20:15)
[2021-11-04] MEDS: GABAPENTIN 100MG CAPSULE PO SCH ×2 (09:40→20:15)
[2021-11-04] MEDS ORDERED: NALOXONE HCL 0.4MG/ML VIAL IV PRN (12:00)
[2021-11-04 19:55] VITALS: BP 178/71
[2021-11-04] MEDS: HYDROCODONE/ACETAMINOPHEN 5/325MG TABLET PO PRN (20:16)
[2021-11-04] MEDS: ATORVASTATIN CALCIUM 40MG TABLET PO SCH (20:16)
[2021-11-04] MEDS: POLYETHYLENE GLYCOL 3350 (17GM) 1 DOSE PACK PO SCH (20:16)
[2021-11-04] MEDS: INSULIN GLARGINE 100 UNITS/ML SUBCUT SCH (21:46)
[2021-11-05] MEDS: SODIUM CHLORIDE 0.9% INJ 3ML FLUSH IVF SCH ×3 (05:38→22:45)
[2021-11-05] MEDS: HYDRALAZINE HCL 25MG TABLET PO SCH ×3 (05:38→21:40)
[2021-11-05] MEDS: BLOOD SUGAR DIAGNOSTIC STRIP TEST SCH ×4 (06:32→21:40)
[2021-11-05] MEDS: INSULIN LISPRO 100 UNITS/ML SUBCUT SCH ×8 (06:42→22:33)
[2021-11-05 08:00] VITALS: BP 173/41
[2021-11-05] MEDS: CYANOCOBALAMIN 1000MCG/ML VIAL IM SCH (09:00)
[2021-11-05] MEDS: LIDOCAINE 5% PATCH TOP SCH (09:00)
[2021-11-05] MEDS: CLOPIDOGREL 75MG TABLET PO SCH (09:00)
[2021-11-05] MEDS: ENOXAPARIN 150MG/ML SYR SUBCUT SCH ×2 (09:00→22:01)
[2021-11-05] MEDS: FERROUS SULFATE 325MG TABLET PO SCH ×3 (09:00→18:16)
[2021-11-05] MEDS: DOCUSATE SODIUM 100MG CAPSULE PO SCH ×2 (09:00→18:16)
[2021-11-05] MEDS: ASCORBIC ACID 500 MG TABLET PO SCH (09:00)
[2021-11-05] MEDS: METHIMAZOLE 5MG TABLET PO SCH ×2 (09:00→17:00)
[2021-11-05] MEDS: CARVEDILOL 6.25 MG TABLET PO SCH ×2 (09:00→21:39)
[2021-11-05] MEDS: ASPIRIN 325MG EC TABLET PO SCH (09:00)
[2021-11-05] MEDS: GABAPENTIN 100MG CAPSULE PO SCH ×2 (09:00→21:37)
[2021-11-05] MEDS: AMLODIPINE 10MG TABLET PO SCH (09:00)
[2021-11-05] MEDS: HYDROCODONE/ACETAMINOPHEN 5/325MG TABLET PO PRN ×2 (10:38→21:39)
[2021-11-05] MEDS ORDERED: METHYL SALICYLATE/MENTHOL CREAM 85GM TOP PRN (14:30)
[2021-11-05 15:08] LABS: 25-HYDROXY VITAMIN D3 1.7 ng/mL (.)
[2021-11-05 15:33] LABS: BASOPHILS % 0.6 % (0.0-2.0); EOSINOPHILS % 1.5 % (0.0-5.0); HEMATOCRIT. 29.2 % (36.0-48.0); HEMOGLOBIN. 9.4 g/dL (12.0-16.0); MEAN CORPUSCULAR HEMOGLOBIN 27.2 pg (28.0-32.0); MEAN CORPUSCULAR VOLUME 84.7 fL (81.0-99.0); MEAN PLATELET VOLUME 9.8 fl (7.4-10.4); MONOCYTES % 11.9 % (2.0-8.0); PLATELET 338 x1000/uL (130-400); RED BLOOD CELL COUNT 3.44 mill/uL (4.2-5.4); RED CELL DISTRIBUTION WIDTH 14.4 % (11.6-14.6)
[2021-11-05] MEDS: POLYETHYLENE GLYCOL 3350 (17GM) 1 DOSE PACK PO SCH (21:00)
[2021-11-05] MEDS: ATORVASTATIN CALCIUM 40MG TABLET PO SCH (21:39)
[2021-11-05] MEDS: INSULIN GLARGINE 100 UNITS/ML SUBCUT SCH (21:51)
[2021-11-06] MEDS: BLOOD SUGAR DIAGNOSTIC STRIP TEST SCH ×4 (06:17→21:00)
[2021-11-06] MEDS: HYDRALAZINE HCL 25MG TABLET PO SCH ×3 (06:18→20:35)
[2021-11-06] MEDS: INSULIN LISPRO 100 UNITS/ML SUBCUT SCH ×7 (06:32→21:52)
[2021-11-06 06:41] LABS: BASOPHILS % 0.4 % (0.0-2.0); EOSINOPHILS % 1.8 % (0.0-5.0); HEMATOCRIT. 31.5 % (36.0-48.0); HEMOGLOBIN. 10.1 g/dL (12.0-16.0); LYMPHOCYTES % 39.3 % (20.0-50.0); MEAN CORPUSCULAR HEMOGLOBIN 27.1 pg (28.0-32.0); MEAN CORPUSCULAR VOLUME 84.6 fL (81.0-99.0); MEAN PLATELET VOLUME 9.9 fl (7.4-10.4); MONOCYTES % 10.8 % (2.0-8.0); NEUTROPHILS % 47.7 % (40.0-76.0); PLATELET 335 x1000/uL (130-400); RED BLOOD CELL COUNT 3.72 mill/uL (4.2-5.4); RED CELL DISTRIBUTION WIDTH 14.5 % (11.6-14.6)
[2021-11-06] MEDS: SODIUM CHLORIDE 0.9% INJ 3ML FLUSH IVF SCH (06:45)
[2021-11-06] MEDS: HYDROCODONE/ACETAMINOPHEN 5/325MG TABLET PO PRN ×2 (07:36→19:48)
[2021-11-06 08:00] VITALS: BP 125/68
[2021-11-06] MEDS: METHIMAZOLE 5MG TABLET PO SCH ×2 (09:00→17:00)
[2021-11-06] MEDS: LIDOCAINE 5% PATCH TOP SCH ×2 (09:00→09:54)
[2021-11-06] MEDS: ASCORBIC ACID 500 MG TABLET PO SCH (09:50)
[2021-11-06] MEDS: FERROUS SULFATE 325MG TABLET PO SCH ×3 (09:51→17:49)
[2021-11-06] MEDS: CLOPIDOGREL 75MG TABLET PO SCH (09:51)
[2021-11-06] MEDS: CARVEDILOL 6.25 MG TABLET PO SCH ×2 (09:51→20:36)
[2021-11-06] MEDS: GABAPENTIN 100MG CAPSULE PO SCH ×2 (09:52→20:35)
[2021-11-06] MEDS: AMLODIPINE 10MG TABLET PO SCH (09:52)
[2021-11-06] MEDS: DOCUSATE SODIUM 100MG CAPSULE PO SCH ×2 (09:52→17:49)
[2021-11-06] MEDS: ASPIRIN 325MG EC TABLET PO SCH (09:52)
[2021-11-06] MEDS: ENOXAPARIN 150MG/ML SYR SUBCUT SCH (09:52)
[2021-11-06] MEDS: ERGOCALCIFEROL 50000UNITS CAPSULE PO SCH (14:06)
[2021-11-06] MEDS: ATORVASTATIN CALCIUM 40MG TABLET PO SCH (20:35)
[2021-11-06] MEDS: POLYETHYLENE GLYCOL 3350 (17GM) 1 DOSE PACK PO SCH (20:36)
[2021-11-06] MEDS: INSULIN GLARGINE 100 UNITS/ML SUBCUT SCH (21:51)
[2021-11-07] MEDS: HYDRALAZINE HCL 25MG TABLET PO SCH ×3 (05:57→21:56)
[2021-11-07] MEDS: INSULIN LISPRO 100 UNITS/ML SUBCUT SCH ×7 (06:35→22:12)
[2021-11-07] MEDS: BLOOD SUGAR DIAGNOSTIC STRIP TEST SCH ×4 (06:38→21:00)
[2021-11-07 08:00] VITALS: BP 161/58
[2021-11-07] MEDS: LIDOCAINE 5% PATCH TOP SCH (09:00)
[2021-11-07] MEDS: DOCUSATE SODIUM 100MG CAPSULE PO SCH ×2 (10:20→17:38)
[2021-11-07] MEDS: CLONIDINE 0.1MG TABLET PO PRN (10:21)
[2021-11-07] MEDS: METHIMAZOLE 5MG TABLET PO SCH ×2 (10:21→17:39)
[2021-11-07] MEDS: ASPIRIN 325MG EC TABLET PO SCH (10:21)
[2021-11-07] MEDS: GABAPENTIN 100MG CAPSULE PO SCH ×2 (10:21→21:55)
[2021-11-07] MEDS: CARVEDILOL 6.25 MG TABLET PO SCH ×2 (10:21→21:00)
[2021-11-07] MEDS: CLOPIDOGREL 75MG TABLET PO SCH (10:21)
[2021-11-07] MEDS: AMLODIPINE 10MG TABLET PO SCH (10:21)
[2021-11-07] MEDS: ASCORBIC ACID 500 MG TABLET PO SCH (10:21)
[2021-11-07] MEDS: FERROUS SULFATE 325MG TABLET PO SCH ×3 (10:21→17:38)
[2021-11-07] MEDS: POLYETHYLENE GLYCOL 3350 (17GM) 1 DOSE PACK PO SCH (10:22)
[2021-11-07] MEDS: ENOXAPARIN 120MG/0.8ML SYR SUBCUT SCH (10:22)
[2021-11-07] MEDS: LACTULOSE 20G/30ML UDC PO SCH ×3 (10:27→17:00)
[2021-11-07 20:00] VITALS: BP 117/44
[2021-11-07] MEDS: ATORVASTATIN CALCIUM 40MG TABLET PO SCH (21:55)
[2021-11-07] MEDS: INSULIN GLARGINE 100 UNITS/ML SUBCUT SCH (22:02)
[2021-11-07] MEDS: SODIUM CHLORIDE 0.9% INJ 3ML FLUSH IVF SCH (22:14)
[2021-11-08 05:44] LABS: BASOPHILS % 0.4 % (0.0-2.0); EOSINOPHILS % 2.5 % (0.0-5.0); HEMATOCRIT. 29.1 % (36.0-48.0); HEMOGLOBIN. 9.5 g/dL (12.0-16.0); LYMPHOCYTES % 34.3 % (20.0-50.0); MEAN CORPUSCULAR HEMOGLOBIN 27.3 pg (28.0-32.0); MEAN CORPUSCULAR VOLUME 83.3 fL (81.0-99.0); MEAN PLATELET VOLUME 9.7 fl (7.4-10.4); MONOCYTES % 10.3 % (2.0-8.0); NEUTROPHILS % 52.5 % (40.0-76.0); PLATELET 334 x1000/uL (130-400); RED BLOOD CELL COUNT 3.49 mill/uL (4.2-5.4); RED CELL DISTRIBUTION WIDTH 14.5 % (11.6-14.6)
[2021-11-08] MEDS: SODIUM CHLORIDE 0.9% INJ 3ML FLUSH IVF SCH ×2 (06:08→20:55)
[2021-11-08] MEDS: BLOOD SUGAR DIAGNOSTIC STRIP TEST SCH ×4 (06:08→20:54)
[2021-11-08] MEDS ORDERED: INSULIN LISPRO 100 UNITS/ML SUBCUT SCH (07:00)
[2021-11-08] MEDS: HYDRALAZINE HCL 25MG TABLET PO SCH ×3 (07:04→22:14)
[2021-11-08] MEDS: INSULIN LISPRO 100 UNITS/ML SUBCUT SCH ×2 (07:09→13:00)
[2021-11-08] MEDS: INSULIN LISPRO (LOW DOSE) 100 UNITS/ML SUBCUT SCH ×3 (07:57→17:00)
[2021-11-08 08:00] VITALS: BP 167/63
[2021-11-08] MEDS: LIDOCAINE 5% PATCH TOP SCH (09:00)
[2021-11-08] MEDS: ASPIRIN 325MG EC TABLET PO SCH (09:25)
[2021-11-08] MEDS: DOCUSATE SODIUM 100MG CAPSULE PO SCH ×2 (09:25→17:00)
[2021-11-08] MEDS: GABAPENTIN 100MG CAPSULE PO SCH ×2 (09:26→21:00)
[2021-11-08] MEDS: ASCORBIC ACID 500 MG TABLET PO SCH (09:27)
[2021-11-08] MEDS: AMLODIPINE 10MG TABLET PO SCH (09:27)
[2021-11-08] MEDS: CARVEDILOL 6.25 MG TABLET PO SCH ×2 (09:27→22:14)
[2021-11-08] MEDS: ENOXAPARIN 120MG/0.8ML SYR SUBCUT SCH (09:28)
[2021-11-08] MEDS: FERROUS SULFATE 325MG TABLET PO SCH ×3 (09:28→18:03)
[2021-11-08] MEDS: CLOPIDOGREL 75MG TABLET PO SCH (09:28)
[2021-11-08] MEDS: METHIMAZOLE 5MG TABLET PO SCH ×2 (09:28→18:03)
[2021-11-08] MEDS: HYDROCODONE/ACETAMINOPHEN 5/325MG TABLET PO PRN (09:29)
[2021-11-08 20:23] VITALS: BP 134/51
[2021-11-08] MEDS: POLYETHYLENE GLYCOL 3350 (17GM) 1 DOSE PACK PO SCH (22:12)
[2021-11-08] MEDS: ATORVASTATIN CALCIUM 40MG TABLET PO SCH (22:13)
[2021-11-08] MEDS: INSULIN GLARGINE 100 UNITS/ML SUBCUT SCH (22:28)
[2021-11-09 06:23] LABS: PROTHROMBIN TIME 10.3 sec (9.6-11.0)
[2021-11-09] MEDS: BLOOD SUGAR DIAGNOSTIC STRIP TEST SCH ×4 (06:34→21:00)
[2021-11-09] MEDS: SODIUM CHLORIDE 0.9% INJ 3ML FLUSH IVF SCH ×3 (06:35→22:45)
[2021-11-09 06:39] LABS: VITAMIN B12 SERUM >2000 pg/mL pg/mL (211-911)
[2021-11-09] MEDS: HYDRALAZINE HCL 25MG TABLET PO SCH ×3 (06:42→22:39)
[2021-11-09] MEDS: INSULIN LISPRO (LOW DOSE) 100 UNITS/ML SUBCUT SCH ×3 (06:45→18:00)
[2021-11-09] MEDS: INSULIN LISPRO 100 UNITS/ML SUBCUT SCH ×3 (06:46→18:01)
[2021-11-09 06:49] LABS: BASOPHILS % 0.4 % (0.0-2.0); EOSINOPHILS % 2.9 % (0.0-5.0); HEMATOCRIT. 28.9 % (36.0-48.0); HEMOGLOBIN. 9.3 g/dL (12.0-16.0); LYMPHOCYTES % 35.2 % (20.0-50.0); MEAN CORPUSCULAR VOLUME 83.6 fL (81.0-99.0); MEAN PLATELET VOLUME 9.9 fl (7.4-10.4); MONOCYTES % 9.8 % (2.0-8.0); NEUTROPHILS % 51.7 % (40.0-76.0); PLATELET 334 x1000/uL (130-400); RED BLOOD CELL COUNT 3.45 mill/uL (4.2-5.4); RED CELL DISTRIBUTION WIDTH 14.5 % (11.6-14.6)
[2021-11-09 08:00] VITALS: BP 141/59
[2021-11-09] MEDS: METHIMAZOLE 5MG TABLET PO SCH ×2 (09:00→17:55)
[2021-11-09] MEDS: LIDOCAINE 5% PATCH TOP SCH (09:00)
[2021-11-09] MEDS: AMLODIPINE 10MG TABLET PO SCH (09:16)
[2021-11-09] MEDS: LACTULOSE 20G/30ML UDC PO PRN (09:16)
[2021-11-09] MEDS: FERROUS SULFATE 325MG TABLET PO SCH ×2 (09:16→17:55)
[2021-11-09] MEDS: ASPIRIN 325MG EC TABLET PO SCH (09:16)
[2021-11-09] MEDS: CARVEDILOL 6.25 MG TABLET PO SCH ×2 (09:17→22:28)
[2021-11-09] MEDS: ENOXAPARIN 120MG/0.8ML SYR SUBCUT SCH (09:17)
[2021-11-09] MEDS: GABAPENTIN 100MG CAPSULE PO SCH ×2 (09:17→22:29)
[2021-11-09] MEDS: ASCORBIC ACID 500 MG TABLET PO SCH (09:17)
[2021-11-09] MEDS: DOCUSATE SODIUM 100MG CAPSULE PO SCH ×2 (09:17→17:55)
[2021-11-09] MEDS: CLOPIDOGREL 75MG TABLET PO SCH (09:17)
[2021-11-09 20:00] VITALS: BP 163/64
[2021-11-09] MEDS: POLYETHYLENE GLYCOL 3350 (17GM) 1 DOSE PACK PO SCH (21:00)
[2021-11-09] MEDS: ATORVASTATIN CALCIUM 40MG TABLET PO SCH (22:28)
[2021-11-09] MEDS: INSULIN GLARGINE 100 UNITS/ML SUBCUT SCH (22:38)
[2021-11-10 06:45] LABS: BASOPHILS % 0.2 % (0.0-2.0); EOSINOPHILS % 3.1 % (0.0-5.0); HEMATOCRIT. 29.4 % (36.0-48.0); HEMOGLOBIN. 9.5 g/dL (12.0-16.0); MEAN CORPUSCULAR HEMOGLOBIN 27.6 pg (28.0-32.0); MEAN CORPUSCULAR VOLUME 85.3 fL (81.0-99.0); MEAN PLATELET VOLUME 9.7 fl (7.4-10.4); MONOCYTES % 9.6 % (2.0-8.0); NEUTROPHILS % 51.1 % (40.0-76.0); PLATELET 331 x1000/uL (130-400); RED BLOOD CELL COUNT 3.45 mill/uL (4.2-5.4); RED CELL DISTRIBUTION WIDTH 14.5 % (11.6-14.6)
[2021-11-10] MEDS: SODIUM CHLORIDE 0.9% INJ 3ML FLUSH IVF SCH ×2 (06:45→14:11)
[2021-11-10] MEDS: BLOOD SUGAR DIAGNOSTIC STRIP TEST SCH ×4 (06:46→21:27)
[2021-11-10] MEDS: HYDRALAZINE HCL 25MG TABLET PO SCH ×3 (06:48→20:39)
[2021-11-10] MEDS: INSULIN LISPRO (LOW DOSE) 100 UNITS/ML SUBCUT SCH ×3 (06:57→17:45)
[2021-11-10] MEDS: INSULIN LISPRO 100 UNITS/ML SUBCUT SCH ×3 (07:00→17:44)
[2021-11-10 08:00] VITALS: BP 157/64
[2021-11-10] MEDS: LIDOCAINE 5% PATCH TOP SCH (09:00)
[2021-11-10] MEDS: CLOPIDOGREL 75MG TABLET PO SCH (09:47)
[2021-11-10] MEDS: METHIMAZOLE 5MG TABLET PO SCH ×2 (09:47→17:00)
[2021-11-10] MEDS: GABAPENTIN 100MG CAPSULE PO SCH ×2 (09:47→20:37)
[2021-11-10] MEDS: ASPIRIN 325MG EC TABLET PO SCH (09:47)
[2021-11-10] MEDS: DOCUSATE SODIUM 100MG CAPSULE PO SCH ×2 (09:47→17:38)
[2021-11-10] MEDS: FERROUS SULFATE 325MG TABLET PO SCH ×2 (09:47→17:38)
[2021-11-10] MEDS: ASCORBIC ACID 500 MG TABLET PO SCH (09:47)
[2021-11-10] MEDS: AMLODIPINE 10MG TABLET PO SCH (09:48)
[2021-11-10] MEDS: CARVEDILOL 6.25 MG TABLET PO SCH ×2 (09:48→20:38)
[2021-11-10] MEDS: ENOXAPARIN 120MG/0.8ML SYR SUBCUT SCH ×2 (09:49→21:38)
[2021-11-10 20:00] VITALS: BP 145/47
[2021-11-10] MEDS: ATORVASTATIN CALCIUM 40MG TABLET PO SCH (20:37)
[2021-11-10] MEDS: POLYETHYLENE GLYCOL 3350 (17GM) 1 DOSE PACK PO SCH (21:00)
[2021-11-10] MEDS: INSULIN GLARGINE 100 UNITS/ML SUBCUT SCH (21:37)
[2021-11-11] MEDS: HYDRALAZINE HCL 25MG TABLET PO SCH ×3 (06:30→20:29)
[2021-11-11] MEDS: INSULIN LISPRO (LOW DOSE) 100 UNITS/ML SUBCUT SCH ×3 (06:37→17:00)
[2021-11-11] MEDS: BLOOD SUGAR DIAGNOSTIC STRIP TEST SCH ×4 (06:38→20:38)
[2021-11-11] MEDS: INSULIN LISPRO 100 UNITS/ML SUBCUT SCH ×3 (06:38→17:00)
[2021-11-11 06:54] LABS: BASOPHILS % 0.2 % (0.0-2.0); EOSINOPHILS % 3.3 % (0.0-5.0); HEMATOCRIT. 27.3 % (36.0-48.0); HEMOGLOBIN. 9.1 g/dL (12.0-16.0); LYMPHOCYTES % 34.7 % (20.0-50.0); MEAN CORPUSCULAR HEMOGLOBIN 27.9 pg (28.0-32.0); MEAN CORPUSCULAR VOLUME 83.7 fL (81.0-99.0); MEAN PLATELET VOLUME 9.9 fl (7.4-10.4); MONOCYTES % 8.7 % (2.0-8.0); NEUTROPHILS % 53.1 % (40.0-76.0); PLATELET 334 x1000/uL (130-400); RED BLOOD CELL COUNT 3.26 mill/uL (4.2-5.4); RED CELL DISTRIBUTION WIDTH 14.7 % (11.6-14.6)
[2021-11-11 08:00] VITALS: BP 155/54
[2021-11-11] MEDS: LIDOCAINE 5% PATCH TOP SCH (09:00)
[2021-11-11] MEDS: METHIMAZOLE 5MG TABLET PO SCH ×2 (09:00→17:00)
[2021-11-11] MEDS: CLOPIDOGREL 75MG TABLET PO SCH (09:54)
[2021-11-11] MEDS: GABAPENTIN 100MG CAPSULE PO SCH ×2 (09:54→20:28)
[2021-11-11] MEDS: ASCORBIC ACID 500 MG TABLET PO SCH (09:54)
[2021-11-11] MEDS: ASPIRIN 325MG EC TABLET PO SCH (09:54)
[2021-11-11] MEDS: AMLODIPINE 10MG TABLET PO SCH (09:55)
[2021-11-11] MEDS: DOCUSATE SODIUM 100MG CAPSULE PO SCH ×2 (09:55→18:59)
[2021-11-11] MEDS: FERROUS SULFATE 325MG TABLET PO SCH ×2 (09:55→17:00)
[2021-11-11] MEDS: CARVEDILOL 6.25 MG TABLET PO SCH ×2 (09:56→20:28)
[2021-11-11] MEDS: ENOXAPARIN 120MG/0.8ML SYR SUBCUT SCH ×2 (09:57→21:03)
[2021-11-11 20:00] VITALS: BP 122/49
[2021-11-11] MEDS: ATORVASTATIN CALCIUM 40MG TABLET PO SCH (20:28)
[2021-11-11] MEDS: POLYETHYLENE GLYCOL 3350 (17GM) 1 DOSE PACK PO SCH (21:00)
[2021-11-11] MEDS: INSULIN GLARGINE 100 UNITS/ML SUBCUT SCH (21:06)
[2021-11-11] MEDS: SODIUM CHLORIDE 0.9% INJ 3ML FLUSH IVF SCH (22:45)
[2021-11-12 06:12] LABS: BASOPHILS % 0.3 % (0.0-2.0); EOSINOPHILS % 2.9 % (0.0-5.0); HEMATOCRIT. 30.2 % (36.0-48.0); HEMOGLOBIN. 9.6 g/dL (12.0-16.0); LYMPHOCYTES % 40.2 % (20.0-50.0); MEAN CORPUSCULAR HEMOGLOBIN 27.1 pg (28.0-32.0); MEAN CORPUSCULAR VOLUME 85.3 fL (81.0-99.0); MEAN PLATELET VOLUME 9.6 fl (7.4-10.4); MONOCYTES % 8.7 % (2.0-8.0); NEUTROPHILS % 47.9 % (40.0-76.0); PLATELET 338 x1000/uL (130-400); RED BLOOD CELL COUNT 3.54 mill/uL (4.2-5.4); RED CELL DISTRIBUTION WIDTH 14.7 % (11.6-14.6)
[2021-11-12] MEDS: HYDRALAZINE HCL 25MG TABLET PO SCH ×3 (06:20→21:06)
[2021-11-12] MEDS: BLOOD SUGAR DIAGNOSTIC STRIP TEST SCH ×4 (06:30→21:06)
[2021-11-12] MEDS: INSULIN LISPRO (LOW DOSE) 100 UNITS/ML SUBCUT SCH ×3 (06:37→17:00)
[2021-11-12] MEDS: INSULIN LISPRO 100 UNITS/ML SUBCUT SCH ×3 (06:38→18:55)
[2021-11-12] MEDS: SODIUM CHLORIDE 0.9% INJ 3ML FLUSH IVF SCH ×3 (06:39→21:07)
[2021-11-12 08:00] VITALS: BP 145/55
[2021-11-12] MEDS: METHIMAZOLE 5MG TABLET PO SCH ×2 (09:00→17:00)
[2021-11-12] MEDS: LIDOCAINE 5% PATCH TOP SCH (09:00)
[2021-11-12] MEDS: CYANOCOBALAMIN 1000MCG/ML VIAL IM SCH (09:59)
[2021-11-12] MEDS: ASPIRIN 325MG EC TABLET PO SCH (09:59)
[2021-11-12] MEDS: GABAPENTIN 100MG CAPSULE PO SCH ×2 (09:59→21:06)
[2021-11-12] MEDS: CARVEDILOL 6.25 MG TABLET PO SCH ×2 (09:59→21:05)
[2021-11-12] MEDS: AMLODIPINE 10MG TABLET PO SCH (09:59)
[2021-11-12] MEDS: DOCUSATE SODIUM 100MG CAPSULE PO SCH ×2 (09:59→17:33)
[2021-11-12] MEDS: FERROUS SULFATE 325MG TABLET PO SCH ×2 (09:59→17:33)
[2021-11-12] MEDS: ENOXAPARIN 120MG/0.8ML SYR SUBCUT SCH ×2 (10:00→21:06)
[2021-11-12] MEDS: CLOPIDOGREL 75MG TABLET PO SCH (10:00)
[2021-11-12] MEDS: ASCORBIC ACID 500 MG TABLET PO SCH (10:00)
[2021-11-12 20:00] VITALS: BP 131/39
[2021-11-12] MEDS: POLYETHYLENE GLYCOL 3350 (17GM) 1 DOSE PACK PO SCH (21:00)
[2021-11-12] MEDS: ATORVASTATIN CALCIUM 40MG TABLET PO SCH (21:05)
[2021-11-12] MEDS: INSULIN GLARGINE 100 UNITS/ML SUBCUT SCH (21:07)
[2021-11-13] MEDS: HYDRALAZINE HCL 25MG TABLET PO SCH ×3 (05:36→21:43)
[2021-11-13] MEDS: SODIUM CHLORIDE 0.9% INJ 3ML FLUSH IVF SCH ×3 (05:37→21:55)
[2021-11-13] MEDS: BLOOD SUGAR DIAGNOSTIC STRIP TEST SCH ×4 (05:37→21:43)
[2021-11-13 06:49] LABS: BASOPHILS % 0.4 % (0.0-2.0); EOSINOPHILS % 2.5 % (0.0-5.0); HEMATOCRIT. 27.9 % (36.0-48.0); HEMOGLOBIN. 8.9 g/dL (12.0-16.0); LYMPHOCYTES % 43.5 % (20.0-50.0); MEAN CORPUSCULAR HEMOGLOBIN 27.3 pg (28.0-32.0); MEAN CORPUSCULAR VOLUME 85.2 fL (81.0-99.0); MEAN PLATELET VOLUME 9.7 fl (7.4-10.4); MONOCYTES % 7.9 % (2.0-8.0); NEUTROPHILS % 45.7 % (40.0-76.0); PLATELET 341 x1000/uL (130-400); RED BLOOD CELL COUNT 3.27 mill/uL (4.2-5.4)
[2021-11-13] MEDS: INSULIN LISPRO (LOW DOSE) 100 UNITS/ML SUBCUT SCH ×3 (07:00→17:00)
[2021-11-13] MEDS: INSULIN LISPRO 100 UNITS/ML SUBCUT SCH ×3 (07:00→17:00)
[2021-11-13 08:00] VITALS: BP 190/63
[2021-11-13] MEDS: METHIMAZOLE 5MG TABLET PO SCH (09:00)
[2021-11-13] MEDS: GABAPENTIN 100MG CAPSULE PO SCH ×2 (09:33→21:43)
[2021-11-13] MEDS: LIDOCAINE 5% PATCH TOP SCH ×2 (09:33→10:11)
[2021-11-13] MEDS: AMLODIPINE 10MG TABLET PO SCH (09:33)
[2021-11-13] MEDS: ASPIRIN 325MG EC TABLET PO SCH (09:33)
[2021-11-13] MEDS: CLOPIDOGREL 75MG TABLET PO SCH (09:34)
[2021-11-13] MEDS: ENOXAPARIN 120MG/0.8ML SYR SUBCUT SCH ×2 (09:34→21:44)
[2021-11-13] MEDS: DOCUSATE SODIUM 100MG CAPSULE PO SCH ×2 (09:34→16:35)
[2021-11-13] MEDS: FERROUS SULFATE 325MG TABLET PO SCH ×2 (09:34→16:35)
[2021-11-13] MEDS: CARVEDILOL 6.25 MG TABLET PO SCH ×2 (09:34→21:42)
[2021-11-13] MEDS: ERGOCALCIFEROL 50000UNITS CAPSULE PO SCH (10:01)
[2021-11-13] MEDS: ASCORBIC ACID 500 MG TABLET PO SCH (10:01)
[2021-11-13 14:00] VITALS: BP 151/44
[2021-11-13] MEDS: METHIMAZOLE 10MG TABLET PO SCH (16:36)
[2021-11-13 20:06] VITALS: BP 141/63
[2021-11-13] MEDS: POLYETHYLENE GLYCOL 3350 (17GM) 1 DOSE PACK PO SCH (21:00)
[2021-11-13] MEDS: ATORVASTATIN CALCIUM 40MG TABLET PO SCH (21:39)
[2021-11-13] MEDS: INSULIN GLARGINE 100 UNITS/ML SUBCUT SCH (21:54)
[2021-11-14] MEDS: BLOOD SUGAR DIAGNOSTIC STRIP TEST SCH ×4 (06:23→21:00)
[2021-11-14] MEDS: SODIUM CHLORIDE 0.9% INJ 3ML FLUSH IVF SCH ×3 (06:23→22:35)
[2021-11-14] MEDS: HYDRALAZINE HCL 25MG TABLET PO SCH ×3 (06:23→22:48)
[2021-11-14 06:30] LABS: BASOPHILS % 0.4 % (0.0-2.0); EOSINOPHILS % 2.4 % (0.0-5.0); HEMATOCRIT. 29.5 % (36.0-48.0); HEMOGLOBIN. 9.5 g/dL (12.0-16.0); LYMPHOCYTES % 41.6 % (20.0-50.0); MEAN CORPUSCULAR HEMOGLOBIN 27.4 pg (28.0-32.0); MEAN PLATELET VOLUME 9.6 fl (7.4-10.4); NEUTROPHILS % 46.6 % (40.0-76.0); PLATELET 358 x1000/uL (130-400); RED BLOOD CELL COUNT 3.47 mill/uL (4.2-5.4); RED CELL DISTRIBUTION WIDTH 14.5 % (11.6-14.6)
[2021-11-14] MEDS: INSULIN LISPRO (LOW DOSE) 100 UNITS/ML SUBCUT SCH ×3 (06:38→18:14)
[2021-11-14] MEDS: INSULIN LISPRO 100 UNITS/ML SUBCUT SCH ×3 (06:38→17:00)
[2021-11-14 06:41] VITALS: BP 155/62
[2021-11-14 08:00] VITALS: BP 173/79
[2021-11-14] MEDS: GABAPENTIN 100MG CAPSULE PO SCH ×2 (10:59→20:56)
[2021-11-14] MEDS: CLOPIDOGREL 75MG TABLET PO SCH (10:59)
[2021-11-14] MEDS: LIDOCAINE 5% PATCH TOP SCH (10:59)
[2021-11-14] MEDS: ASPIRIN 325MG EC TABLET PO SCH (10:59)
[2021-11-14] MEDS: DOCUSATE SODIUM 100MG CAPSULE PO SCH ×2 (11:00→17:00)
[2021-11-14] MEDS: FERROUS SULFATE 325MG TABLET PO SCH ×2 (11:01→18:11)
[2021-11-14] MEDS: CARVEDILOL 6.25 MG TABLET PO SCH ×2 (11:01→20:56)
[2021-11-14] MEDS: AMLODIPINE 10MG TABLET PO SCH ×2 (11:02→20:56)
[2021-11-14] MEDS: METHIMAZOLE 10MG TABLET PO SCH ×2 (11:02→17:00)
[2021-11-14] MEDS: LACTULOSE 20G/30ML UDC PO PRN (11:03)
[2021-11-14] MEDS: ASCORBIC ACID 500 MG TABLET PO SCH (11:03)
[2021-11-14] MEDS: ENOXAPARIN 120MG/0.8ML SYR SUBCUT SCH ×2 (11:04→20:58)
[2021-11-14 20:00] VITALS: BP 138/57
[2021-11-14] MEDS: ATORVASTATIN CALCIUM 40MG TABLET PO SCH (20:56)
[2021-11-14] MEDS: POLYETHYLENE GLYCOL 3350 (17GM) 1 DOSE PACK PO SCH (20:57)
[2021-11-14] MEDS: HYDROCODONE/ACETAMINOPHEN 10/325MG TABLET PO PRN (20:57)
[2021-11-14] MEDS: INSULIN GLARGINE 100 UNITS/ML SUBCUT SCH (22:50)
[2021-11-15] MEDS: BLOOD SUGAR DIAGNOSTIC STRIP TEST SCH ×4 (06:18→21:00)
[2021-11-15] MEDS: SODIUM CHLORIDE 0.9% INJ 3ML FLUSH IVF SCH ×3 (06:18→22:45)
[2021-11-15] MEDS: HYDROCODONE/ACETAMINOPHEN 10/325MG TABLET PO PRN (06:27)
[2021-11-15] MEDS: HYDRALAZINE HCL 25MG TABLET PO SCH ×3 (06:27→22:31)
[2021-11-15] MEDS: INSULIN LISPRO (LOW DOSE) 100 UNITS/ML SUBCUT SCH ×3 (06:32→17:00)
[2021-11-15 08:00] VITALS: BP 165/60
[2021-11-15] MEDS: INSULIN LISPRO 100 UNITS/ML SUBCUT SCH ×3 (09:00→17:00)
[2021-11-15] MEDS: CLOPIDOGREL 75MG TABLET PO SCH (10:25)
[2021-11-15] MEDS: ENOXAPARIN 120MG/0.8ML SYR SUBCUT SCH ×2 (10:25→22:32)
[2021-11-15] MEDS: FERROUS SULFATE 325MG TABLET PO SCH ×2 (10:25→17:47)
[2021-11-15] MEDS: ASPIRIN 325MG EC TABLET PO SCH (10:25)
[2021-11-15] MEDS: GABAPENTIN 100MG CAPSULE PO SCH ×2 (10:25→22:33)
[2021-11-15] MEDS: DOCUSATE SODIUM 100MG CAPSULE PO SCH ×2 (10:25→17:47)
[2021-11-15] MEDS: METHIMAZOLE 10MG TABLET PO SCH ×3 (10:25→22:30)
[2021-11-15] MEDS: ASCORBIC ACID 500 MG TABLET PO SCH (10:25)
[2021-11-15] MEDS: CARVEDILOL 6.25 MG TABLET PO SCH ×2 (10:29→22:32)
[2021-11-15 20:00] VITALS: BP 135/46
[2021-11-15] MEDS: POLYETHYLENE GLYCOL 3350 (17GM) 1 DOSE PACK PO SCH (21:00)
[2021-11-15] MEDS: INSULIN GLARGINE 100 UNITS/ML SUBCUT SCH (22:00)
[2021-11-15] MEDS: ATORVASTATIN CALCIUM 40MG TABLET PO SCH (22:30)
[2021-11-16] MEDS: HYDRALAZINE HCL 25MG TABLET PO SCH ×3 (06:29→22:00)
[2021-11-16] MEDS: BLOOD SUGAR DIAGNOSTIC STRIP TEST SCH ×4 (06:32→21:00)
[2021-11-16 06:41] LABS: BASOPHILS % 0.3 % (0.0-2.0); EOSINOPHILS % 2.8 % (0.0-5.0); HEMOGLOBIN. 9.1 g/dL (12.0-16.0); LYMPHOCYTES % 41.1 % (20.0-50.0); MEAN CORPUSCULAR HEMOGLOBIN 27.6 pg (28.0-32.0); MEAN CORPUSCULAR VOLUME 84.8 fL (81.0-99.0); MEAN PLATELET VOLUME 9.5 fl (7.4-10.4); MONOCYTES % 7.6 % (2.0-8.0); NEUTROPHILS % 48.2 % (40.0-76.0); PLATELET 332 x1000/uL (130-400); RED CELL DISTRIBUTION WIDTH 14.8 % (11.6-14.6)
[2021-11-16] MEDS: SODIUM CHLORIDE 0.9% INJ 3ML FLUSH IVF SCH ×3 (07:00→22:45)
[2021-11-16 08:00] VITALS: BP 153/56
[2021-11-16] MEDS: DOCUSATE SODIUM 100MG CAPSULE PO SCH ×2 (08:53→17:53)
[2021-11-16] MEDS: ASPIRIN 325MG EC TABLET PO SCH (08:53)
[2021-11-16] MEDS: CLOPIDOGREL 75MG TABLET PO SCH (08:53)
[2021-11-16] MEDS: ASCORBIC ACID 500 MG TABLET PO SCH (08:53)
[2021-11-16] MEDS: FERROUS SULFATE 325MG TABLET PO SCH ×2 (08:53→17:52)
[2021-11-16] MEDS: AMLODIPINE 10MG TABLET PO SCH (08:54)
[2021-11-16] MEDS: GABAPENTIN 100MG CAPSULE PO SCH ×2 (08:54→22:17)
[2021-11-16] MEDS: METHIMAZOLE 10MG TABLET PO SCH (08:54)
[2021-11-16] MEDS: CARVEDILOL 6.25 MG TABLET PO SCH ×2 (08:55→21:00)
[2021-11-16] MEDS: LIDOCAINE 5% PATCH TOP SCH (09:00)
[2021-11-16] MEDS: INSULIN LISPRO (LOW DOSE) 100 UNITS/ML SUBCUT SCH ×3 (09:01→18:07)
[2021-11-16] MEDS: INSULIN LISPRO 100 UNITS/ML SUBCUT SCH ×3 (09:02→18:09)
[2021-11-16] MEDS: ENOXAPARIN 120MG/0.8ML SYR SUBCUT SCH ×2 (10:00→22:18)
[2021-11-16 20:27] VITALS: BP 113/56
[2021-11-16] MEDS: POLYETHYLENE GLYCOL 3350 (17GM) 1 DOSE PACK PO SCH (22:17)
[2021-11-16] MEDS: ATORVASTATIN CALCIUM 40MG TABLET PO SCH (22:17)
[2021-11-16] MEDS: INSULIN GLARGINE 100 UNITS/ML SUBCUT SCH (22:24)
[2021-11-17] MEDS: HYDRALAZINE HCL 25MG TABLET PO SCH ×3 (06:34→21:53)
[2021-11-17] MEDS: BLOOD SUGAR DIAGNOSTIC STRIP TEST SCH ×4 (06:34→21:52)
[2021-11-17] MEDS: INSULIN LISPRO 100 UNITS/ML SUBCUT SCH ×3 (06:39→17:20)
[2021-11-17] MEDS: SODIUM CHLORIDE 0.9% INJ 3ML FLUSH IVF SCH (06:40)
[2021-11-17] MEDS: INSULIN LISPRO (LOW DOSE) 100 UNITS/ML SUBCUT SCH ×3 (06:47→17:20)
[2021-11-17 08:00] VITALS: BP 168/68
[2021-11-17] MEDS: LIDOCAINE 5% PATCH TOP SCH (09:00)
[2021-11-17] MEDS: METHIMAZOLE 10MG TABLET PO SCH ×3 (09:00→17:15)
[2021-11-17] MEDS: ENOXAPARIN 120MG/0.8ML SYR SUBCUT SCH ×2 (09:21→21:55)
[2021-11-17] MEDS: ASCORBIC ACID 500 MG TABLET PO SCH (09:22)
[2021-11-17] MEDS: GABAPENTIN 100MG CAPSULE PO SCH ×2 (09:22→21:53)
[2021-11-17] MEDS: FERROUS SULFATE 325MG TABLET PO SCH ×2 (09:22→17:15)
[2021-11-17] MEDS: ASPIRIN 325MG EC TABLET PO SCH (09:22)
[2021-11-17] MEDS: CLOPIDOGREL 75MG TABLET PO SCH (09:22)
[2021-11-17] MEDS: DOCUSATE SODIUM 100MG CAPSULE PO SCH ×2 (09:24→17:15)
[2021-11-17] MEDS: CARVEDILOL 6.25 MG TABLET PO SCH ×2 (09:24→21:54)
[2021-11-17] MEDS: AMLODIPINE 10MG TABLET PO SCH (09:24)
[2021-11-17 20:00] VITALS: BP 155/66
[2021-11-17] MEDS: POLYETHYLENE GLYCOL 3350 (17GM) 1 DOSE PACK PO SCH (21:00)
[2021-11-17] MEDS: ATORVASTATIN CALCIUM 40MG TABLET PO SCH (21:53)
[2021-11-17] MEDS: INSULIN GLARGINE 100 UNITS/ML SUBCUT SCH (22:01)
[2021-11-18 06:11] LABS: BASOPHILS % 0.3 % (0.0-2.0); EOSINOPHILS % 2.5 % (0.0-5.0); HEMATOCRIT. 29.1 % (36.0-48.0); HEMOGLOBIN. 9.4 g/dL (12.0-16.0); MEAN CORPUSCULAR HEMOGLOBIN 27.2 pg (28.0-32.0); MEAN PLATELET VOLUME 9.6 fl (7.4-10.4); MONOCYTES % 9.4 % (2.0-8.0); NEUTROPHILS % 54.8 % (40.0-76.0); PLATELET 331 x1000/uL (130-400); RED BLOOD CELL COUNT 3.46 mill/uL (4.2-5.4)
[2021-11-18 06:26] LABS: CHLORIDE 109 mEq/L (98-107)
[2021-11-18 06:47] LABS: T4 FREE 1.98 ng/dL (0.76-1.46)
[2021-11-18] MEDS: BLOOD SUGAR DIAGNOSTIC STRIP TEST SCH ×4 (06:48→21:10)
[2021-11-18] MEDS: HYDRALAZINE HCL 25MG TABLET PO SCH ×3 (06:53→20:52)
[2021-11-18] MEDS: INSULIN LISPRO (LOW DOSE) 100 UNITS/ML SUBCUT SCH ×3 (06:57→17:00)
[2021-11-18] MEDS: INSULIN LISPRO 100 UNITS/ML SUBCUT SCH ×2 (07:00→13:31)
[2021-11-18 08:00] VITALS: BP 194/72
[2021-11-18] MEDS: GABAPENTIN 100MG CAPSULE PO SCH ×2 (08:27→20:52)
[2021-11-18] MEDS: AMLODIPINE 10MG TABLET PO SCH (08:28)
[2021-11-18] MEDS: ENOXAPARIN 120MG/0.8ML SYR SUBCUT SCH ×2 (08:28→21:22)
[2021-11-18] MEDS: FERROUS SULFATE 325MG TABLET PO SCH ×2 (08:28→18:11)
[2021-11-18] MEDS: ASPIRIN 325MG EC TABLET PO SCH (08:28)
[2021-11-18] MEDS: CLOPIDOGREL 75MG TABLET PO SCH (08:28)
[2021-11-18] MEDS: DOCUSATE SODIUM 100MG CAPSULE PO SCH ×2 (08:28→18:12)
[2021-11-18] MEDS: ASCORBIC ACID 500 MG TABLET PO SCH (08:28)
[2021-11-18] MEDS: CARVEDILOL 6.25 MG TABLET PO SCH ×2 (08:28→20:51)
[2021-11-18] MEDS: LIDOCAINE 5% PATCH TOP SCH (08:30)
[2021-11-18] MEDS ORDERED: METHIMAZOLE 5MG TABLET PO SCH (09:00)
[2021-11-18] MEDS: METHIMAZOLE 10MG TABLET PO SCH ×2 (13:27→18:12)
[2021-11-18] MEDS: ATORVASTATIN CALCIUM 40MG TABLET PO SCH (20:51)
[2021-11-18] MEDS: POLYETHYLENE GLYCOL 3350 (17GM) 1 DOSE PACK PO SCH (21:00)
[2021-11-18] MEDS ORDERED: INSULIN GLARGINE 100 UNITS/ML SUBCUT SCH (22:00)
[2021-11-19] MEDS: BLOOD SUGAR DIAGNOSTIC STRIP TEST SCH ×2 (06:54→11:15)
[2021-11-19] MEDS: HYDRALAZINE HCL 25MG TABLET PO SCH (06:55)
[2021-11-19] MEDS: INSULIN LISPRO 100 UNITS/ML SUBCUT SCH ×3 (07:00→13:00)
[2021-11-19] MEDS: INSULIN LISPRO (LOW DOSE) 100 UNITS/ML SUBCUT SCH ×2 (07:01→13:00)
[2021-11-19 08:15] VITALS: BP 195/69
[2021-11-19] MEDS: FERROUS SULFATE 325MG TABLET PO SCH (08:44)
[2021-11-19] MEDS: DOCUSATE SODIUM 100MG CAPSULE PO SCH (08:45)
[2021-11-19] MEDS: METHIMAZOLE 10MG TABLET PO SCH ×2 (08:45→13:00)
[2021-11-19] MEDS: GABAPENTIN 100MG CAPSULE PO SCH (08:45)
[2021-11-19] MEDS: CLOPIDOGREL 75MG TABLET PO SCH (08:45)
[2021-11-19] MEDS: ASPIRIN 325MG EC TABLET PO SCH (08:45)
[2021-11-19] MEDS: CYANOCOBALAMIN 1000MCG/ML VIAL IM SCH (08:46)
[2021-11-19] MEDS: ENOXAPARIN 120MG/0.8ML SYR SUBCUT SCH (08:46)
[2021-11-19] MEDS: ASCORBIC ACID 500 MG TABLET PO SCH (08:46)
[2021-11-19] MEDS: CARVEDILOL 6.25 MG TABLET PO SCH (08:47)
[2021-11-19] MEDS: AMLODIPINE 10MG TABLET PO SCH (08:47)
[2021-11-19] MEDS: LIDOCAINE 5% PATCH TOP SCH (08:47)
[2021-11-19] MEDS ORDERED: METH-372 PO ×2 (10:20→12:39)
[2021-11-19 10:21] VITALS: BP 157/72
[2021-11-19] MEDS ORDERED: DOCU100T PO (12:24)
[2021-11-19] MEDS ORDERED: ASPI-867 MT (12:24)
[2021-11-19] MEDS ORDERED: FERR325T30 PO (12:25)
[2021-11-19] MEDS ORDERED: ACET-3163 PO (12:27)
[2021-11-19] MEDS ORDERED: CARV6.2548 PO (12:29)
[2021-11-19] MEDS ORDERED: GABA-529 PO (12:38)
[2021-11-19] MEDS ORDERED: INSU100I28 SQ (12:39)
[2021-11-19] MEDS ORDERED: ATOR40TA70 PO (12:40)
[2021-11-19] MEDS ORDERED: HYDR-4134 PO (12:40)
[2021-11-19] MEDS ORDERED: CLOP75TA15 PO (12:41)
[2021-11-19] MEDS ORDERED: AMLO10TA80 PO (12:41)
== END 2021-11-19 13:30 | disposition home health service (06) | DRG 64 ==
LOC: OBSVTOIN 20:00
PROVIDERS: ADMIT Physical Medicine & Rehabilitation Spinal Cord Injury Medicine; ATTEND Internal Medicine
DX: I63.9 Cerebral infarction, unspecified (principal); I21.4 Non-ST elevation (NSTEMI) myocardial infarction; N17.0 Acute kidney failure with tubular necrosis; J96.90 Respiratory failure, unspecified, unspecified whether with hypoxia or hypercapnia; I13.0 Hypertensive heart and chronic kidney disease with heart failure and stage 1 through stage 4 chronic kidney disease, or unspecified chronic kidney disease; I42.9 Cardiomyopathy, unspecified; E87.2 Acidosis; E44.0 Moderate protein-calorie malnutrition; Z68.41 Body mass index [BMI] 40.0-44.9, adult; G81.91 Hemiplegia, unspecified affecting right dominant side; N04.9 Nephrotic syndrome with unspecified morphologic changes; K92.1 Melena; E11.22 Type 2 diabetes mellitus with diabetic chronic kidney disease; E11.65 Type 2 diabetes mellitus with hyperglycemia; E66.01 Morbid (severe) obesity due to excess calories; I50.9 Heart failure, unspecified; N18.9 Chronic kidney disease, unspecified; E88.09 Other disorders of plasma-protein metabolism, not elsewhere classified; B35.1 Tinea unguium; D63.1 Anemia in chronic kidney disease; E05.90 Thyrotoxicosis, unspecified without thyrotoxic crisis or storm; E11.51 Type 2 diabetes mellitus with diabetic peripheral angiopathy without gangrene; E53.8 Deficiency of other specified B group vitamins; E55.9 Vitamin D deficiency, unspecified; E87.6 Hypokalemia; E78.5 Hyperlipidemia, unspecified; I67.2 Cerebral atherosclerosis; K76.0 Fatty (change of) liver, not elsewhere classified; K64.4 Residual hemorrhoidal skin tags; M17.11 Unilateral primary osteoarthritis, right knee; R31.0 Gross hematuria; I25.10 Atherosclerotic heart disease of native coronary artery without angina pectoris; E61.1 Iron deficiency; R47.1 Dysarthria and anarthria; Z82.49 Family history of ischemic heart disease and other diseases of the circulatory system; Z83.3 Family history of diabetes mellitus; Z91.81 History of falling; R47.01 Aphasia; I65.22 Occlusion and stenosis of left carotid artery; G62.9 Polyneuropathy, unspecified
CPT/HCPCS: 36415; 73502; 73552; 73560; 76770; 80048; 80053; 82140; 82270; 82306; 82533; 82607; 82728; 82746; 82962; 83036; 83520; 83540; 83550; 84134; 84439; 84443; 84481; 85025; 85044; 92523; 92610; 93970; 97110; 97116; 97162; 97166; 97530; 97535; J1650; J1815; J3420